=== PATIENT | female | born 1960 | race Caucasian/White ===

== ENCOUNTER 2019-04-20 02:55 | Day surgery (SDC) | payer OTHER, SELFPAY ==
[2019-04-16 13:14] VITALS: BMI 23.5
--- NOTE | 2019-04-20 06:54 | P.HP_ITS ---
History of Present Illness History of Present Illness Consent: Risks, benefits, and alternatives have been discussed and questions answered. Patient agrees to proceed with procedure. Chief complaint: Neoplasm Screening Narrative: Radha Parham is a 59 year old W female Referred for her 1st screening colonoscopy. Patient is asymptomatic. There is a questionable history of colon cancer in a paternal aunt. Patient is on Plavix secondary to coronary artery stents she did stop this 4 days ago. [facility] Past Medical History Medical History (Updated 04/20/19 @ 06:58 by Jose Haskins MD) CAD (coronary artery disease) FH: total abdominal hysterectomy and bilateral salpingo-oophorectomy HTN (hypertension) Hyperlipidemia Surgical History Surgical History (Updated 04/20/19 @ 06:58 by Jose Haskins MD) History of appendectomy History of carpal tunnel release History of tonsillectomy and adenoidectomy Status post coronary artery stent placement Meds Home Medications and Allergies Home Medications Medication Instructions Recorded Confirmed Type acyclovir 400 mg PO DAILY PRN 04/16/19 04/16/19 History alirocumab [Praluent Pen] 150 mg SUBCUT DIRECTED 04/16/19 04/16/19 History alprazolam 0.5 mg PO HS 04/16/19 04/16/19 History aspirin [Aspir-81] 81 mg PO DAILY 04/16/19 04/16/19 History atorvastatin 80 mg PO HS 04/16/19 04/16/19 History clobetasol 1 applic TOPICAL 2XW 04/16/19 04/16/19 History clopidogrel [Plavix] 75 mg PO DAILY 04/16/19 04/16/19 History ketoconazole See Rx Instructions .ROUTE .COMPLEX 04/16/19 04/16/19 History omeprazole 40 mg PO DAILY 04/16/19 04/16/19 History quinapril 10 mg PO DAILY 04/16/19 04/16/19 History Allergies Allergy/AdvReac Type Severity Reaction Status Date / Time No Known Allergies Allergy Verified 04/20/19 06:51 Exam Const: Orientation/consciousness: patient oriented x3 Resp: Auscultation: clear to auscultation bilaterally Cardio: Rate: regular rate Rhythm: regular rhythm Heart sounds: no murmurs GI: GI Palp: Yes Soft to palpation, No Tenderness to palpation present (GI), Yes No hepatosplenomegaly present and No Palpable mass present Auscultation: normal bowel sounds Neuro: General: patient oriented x3 and no focal motor deficits Extrem: General: no pedal edema Assessment and Plan Additional Plan screening colonoscopy
--- NOTE | 2019-04-20 06:56 | WPDANESEPPF ---
Anes - Initial Pre Proc Eval Procedure: Operation Date: 04/20/19 07:30 Proposed Procedures p Screening Colonoscopy - Jose Haskins MD Date/Time: 04/20/19 06:56 Surgeon: Jose Haskins MD Pre Op Diagnosis: Neoplasm Screening Patient Data Age: 59 Gender: F Height: 5 ft 6 in Weight: 66 kg Allergies Allergy/AdvReac Type Severity Reaction Status Date / Time No Known Allergies Allergy Verified 04/20/19 06:51 Home Medications Medication Instructions Recorded Confirmed Type acyclovir 400 mg PO DAILY PRN 04/16/19 04/16/19 History alirocumab [Praluent Pen] 150 mg SUBCUT DIRECTED 04/16/19 04/16/19 History alprazolam 0.5 mg PO HS 04/16/19 04/16/19 History aspirin [Aspir-81] 81 mg PO DAILY 04/16/19 04/16/19 History atorvastatin 80 mg PO HS 04/16/19 04/16/19 History clobetasol 1 applic TOPICAL 2XW 04/16/19 04/16/19 History clopidogrel [Plavix] 75 mg PO DAILY 04/16/19 04/16/19 History ketoconazole See Rx Instructions .ROUTE .COMPLEX 04/16/19 04/16/19 History omeprazole 40 mg PO DAILY 04/16/19 04/16/19 History quinapril 10 mg PO DAILY 04/16/19 04/16/19 History Patient hx anesthesia problems: none Family hx anesthesia problems: none PMFSH Past Medical History Medical History (Updated 04/20/19 @ 06:58 by Jose Haskins MD) CAD (coronary artery disease) FH: total abdominal hysterectomy and bilateral salpingo-oophorectomy HTN (hypertension) Hyperlipidemia Surgical History Surgical History History of appendectomy History of carpal tunnel release History of tonsillectomy and adenoidectomy Status post coronary artery stent placement Anes - Eval Final PreProcedure Day of Procedure 04/20/19 06:56 Patient weight: normal Heart: regular rate and rhythm Lungs: clear to auscultation Airway: Mallampati scale class III and special considerations poor opening Neurological: alert and oriented Last oral intake: >/= 8 hours Emergent: no Anesthetic plan: proceed Anesthesia type and monitoring: general GIVS and standard monitoring Informed Consent: The patient's anesthetic plan and its attendant risks and benefits were discussed with the patient/family/POA. Questions were solicited and answers provided to the satisfaction of the patient/family/POA.
[2019-04-20] MEDS: LACTATED RINGERS 1,000 ML 150 ML IV CONT (07:08)
[2019-04-20 07:11] VITALS: BP 140/86; PULSE 72; RESP 16; TEMP 36.6; O2SAT 99; BMI 22.6
[2019-04-20 07:44] VITALS: BP 87/56; PULSE 71; RESP 20; O2SAT 100
[2019-04-20 07:48] VITALS: BP 101/64; PULSE 65; RESP 20; O2SAT 100
[2019-04-20 07:58] VITALS: BP 103/68; PULSE 63; RESP 23; O2SAT 100
== END 2019-04-20 08:17 | disposition home or self-care (01) ==
PROVIDERS: PCP Internal Medicine; Visit Provider Internal Medicine Gastroenterology
PROC: 0DJD8ZZ Inspection of Lower Intestinal Tract, Via Natural or Artificial Opening Endoscopic (ICD-10-PCS; CPT 45378; principal; 2019-04-20 07:30)
DX: Z12.11 Encounter for screening for malignant neoplasm of colon (principal); K64.4 Residual hemorrhoidal skin tags; I10 Essential (primary) hypertension; I25.10 Atherosclerotic heart disease of native coronary artery without angina pectoris; E78.5 Hyperlipidemia, unspecified; Z79.02 Long term (current) use of antithrombotics/antiplatelets; Z79.82 Long term (current) use of aspirin; Z95.5 Presence of coronary angioplasty implant and graft
CPT/HCPCS: 45378; J7120

== ENCOUNTER → 2019-09-14 12:11 | Outpatient (CLI) | payer OTHER, SELFPAY ==
--- NOTE | ~2019-09-14 | CT_ITS ---
EXAMINATION: CT lung screening DATE: 09/14/2019 12:45 INDICATION: History of tobacco dependence TECHNIQUE: Computed tomography (CT) of the chest was performed without intravenous contrast. The dose -length product was 61.73 mGy-cm. Automated exposure control and iterative reconstruction technique w ere employed. COMPARISON: None FINDINGS: Heart size is normal. There is atherosclerosis. No significant pleural or pericardial effus ion. Nonenlarged mediastinal lymph nodes are likely reactive. The upper abdomen is unremarkable. Ther e are calcified mediastinal lymph nodes and left lower lobe pulmonary nodules, compatible with chroni c granulomatous disease. Mild emphysema. No endobronchial lesions. There is a 2 mm right middle lobe nodule. There is a 4 no acute osseous abnormality. Mm right middle lobe nodule, image 78. IMPRESSION: 1. Lung-RADS category 2: Benign appearance or behavior. Continue annual screening with noncontrast lo w-dose chest CT in 12 months. Reviewed, dictated and finalized at location B. IMPRESSION: 1. Lung-RADS category 2: Benign appearance or behavior. Continue annual screeni ng with noncontrast low-dose chest CT in 12 months.
== END ==
DX: Z12.2 Encounter for screening for malignant neoplasm of respiratory organs (principal); Z87.891 Personal history of nicotine dependence
CPT/HCPCS: G0297

== ENCOUNTER 2019-10-05 10:14 | Outpatient (CLI) | payer OTHER, SELFPAY ==
--- NOTE | ~2019-10-05 | MM_ITS ---
EXAMINATION: MM screening wilian BI w abe HISTORY: Screening TECHNIQUE: Craniocaudal and mediolateral oblique 3-D tomosynthesis images were obtained and synthetic 2-D images were generated. CAD analysis was submitted and interpreted. COMPARISON: 11/24/2009 BREAST PARENCHYMAL COMPOSITION: The breasts are heterogenously dense, which may obscure small masses. FINDINGS: There is no evidence of suspicious mass, calcification, or architectural distortion to sugg est malignancy in either breast. There has been no suspicious interval change. IMPRESSION: 1. No mammographic evidence of malignancy. 2. Recommend routine screening mammography in one year. BI-RADS Category 1: Negative Reviewed, dictated and finalized at location A.
== END 2019-10-05 10:15 | disposition home or self-care (01) ==
LOC: ANHIMG 10:17
PROVIDERS: PCP Internal Medicine; Visit Provider Internal Medicine
DX: Z12.31 Encounter for screening mammogram for malignant neoplasm of breast (principal)
CPT/HCPCS: 77063; 77067

== ENCOUNTER 2019-11-06 01:47 | Outpatient (CLI) | payer OTHER, SELFPAY ==
[2019-11-06 17:02] LABS: SARS-CoV-2 RNA PCR Negative
== END 2019-11-06 01:48 | disposition home or self-care (01) ==
LOC: ANHCOVIDDT 01:48
PROVIDERS: PCP Internal Medicine; Visit Provider Internal Medicine Gastroenterology
DX: Z01.812 Encounter for preprocedural laboratory examination (principal)
CPT/HCPCS: 87635; C9803; U0003

== ENCOUNTER 2019-11-08 00:19 | Day surgery (SDC) | payer OTHER, SELFPAY ==
[2019-10-31 08:58] VITALS: BMI 23.1
--- NOTE | 2019-11-08 09:25 | WPDANESEPPF ---
Anes - Initial Pre Proc Eval Procedure: Operation Date: 11/08/19 09:30 Proposed Procedures p Esophagogastroduodenoscopy - Jose Haskins MD Date/Time: 11/08/19 09:25 Surgeon: Jose Haskins MD Pre Op Diagnosis: Blood in Stool Patient Data Age: 59 Gender: F Height: 1.68 m Weight: 65 kg Allergies Allergy/AdvReac Type Severity Reaction Status Date / Time No Known Allergies Allergy Verified 11/08/19 09:26 Home Medications Medication Instructions Recorded Confirmed Type Praluent Pen 150 mg SUBCUT DIRECTED 04/16/19 10/31/19 History atorvastatin 80 mg PO HS 04/16/19 10/31/19 History clopidogrel [Plavix] 75 mg PO DAILY 04/16/19 10/31/19 History omeprazole 40 mg PO DAILY 04/16/19 10/31/19 History quinapril 10 mg PO DAILY 04/16/19 10/31/19 History Patient hx anesthesia problems: none Family hx anesthesia problems: none PMFSH Past Medical History Medical History (Updated 11/08/19 @ 09:39 by Js Rosales MD) Anxiety Arthritis CAD (coronary artery disease) Depression FH: total abdominal hysterectomy and bilateral salpingo-oophorectomy Gastroesophageal reflux disease HTN (hypertension) Hyperlipidemia FREDI (obstructive sleep apnea) Surgical History Surgical History (Updated 11/08/19 @ 09:39 by Js Rosales MD) History of appendectomy History of carpal tunnel release History of tonsillectomy and adenoidectomy Status post coronary artery stent placement STENTS X4- PLAVIX Social History Social History Alcohol intake: current Substance use type: does not use Living arrangements: with family Anes - Eval Final PreProcedure Day of Procedure 11/08/19 09:25 Patient weight: normal Heart: regular rate and rhythm Lungs: clear to auscultation and normal air movement Airway: Mallampati scale class II Neurological: alert and oriented Last oral intake: >/= 8 hours ASA classification: III Emergent: no Anesthetic plan: proceed Anesthesia type and monitoring: general GIVS Informed Consent: The patient's anesthetic plan and its attendant risks and benefits were discussed with the patient/family/POA. Questions were solicited and answers provided to the satisfaction of the patient/family/POA.
[2019-11-08 09:27] VITALS: BP 149/81; PULSE 69; RESP 16; TEMP 36.8; O2SAT 99
[2019-11-08] MEDS: LACTATED RINGERS 1,000 ML 150 ML IV CONT (09:44)
--- NOTE | 2019-11-08 09:55 | P.HP_ITS ---
History of Present Illness History of Present Illness Consent: Risks, benefits, and alternatives have been discussed and questions answered. Patient agrees to proceed with procedure. Chief complaint: Blood in Stool Narrative: Radha Parham is a 59 year old W female Referred for gastroscopy for evaluation of anemia and recent episode of several days of dark stools. Patient was on 81 mg of aspirin and Plavix this was discontinued dark stool stopped and she was restarted on Plavix and no further black stools she takes Pepto-Bismol cage only does not recall taking it during the dark stools. Patient agreed colonoscopy March this year which was normal was a good prep terminal ileum was normal. She denies any prior to peptic ulcer disease. She does take ibuprofen occasionally she has severe back pain but not on a regular basis. Patient is on 40 mg of Prilosec for acid reflux disease. [facility] Past Medical History Medical History Anxiety Arthritis CAD (coronary artery disease) Depression FH: total abdominal hysterectomy and bilateral salpingo-oophorectomy Gastroesophageal reflux disease HTN (hypertension) Hyperlipidemia FREDI (obstructive sleep apnea) Surgical History Surgical History History of appendectomy History of carpal tunnel release History of tonsillectomy and adenoidectomy Status post coronary artery stent placement STENTS X4- PLAVIX Social History Social History Alcohol intake: current Substance use type: does not use Living arrangements: with family Meds Home Medications and Allergies Home Medications Medication Instructions Recorded Confirmed Type Praluent Pen 150 mg SUBCUT DIRECTED 04/16/19 10/31/19 History atorvastatin 80 mg PO HS 04/16/19 10/31/19 History clopidogrel [Plavix] 75 mg PO DAILY 04/16/19 11/08/19 History omeprazole 40 mg PO DAILY 04/16/19 10/31/19 History quinapril 10 mg PO DAILY 04/16/19 11/08/19 History Allergies Allergy/AdvReac Type Severity Reaction Status Date / Time No Known Allergies Allergy Verified 11/08/19 09:26 Vital Signs Vital Signs - 24 hr 11/08/19 09:27 Temperature 36.8 C Pulse Rate 69 Respiratory Rate 16 Blood Pressure 149/81 H Pulse Oximetry 99 Exam Const: Orientation/consciousness: patient oriented x3 Resp: Auscultation: clear to auscultation bilaterally Cardio: Rate: regular rate Rhythm: regular rhythm Heart sounds: no murmurs GI: GI Palp: Yes Soft to palpation, No Tenderness to palpation present (GI), Yes No hepatosplenomegaly present and No Palpable mass present Auscultation: normal bowel sounds Neuro: General: patient oriented x3 and no focal motor deficits Extrem: General: no pedal edema Assessment and Plan Additional Plan Gastroscopy for evaluation anemia and recent episode of black stools
[2019-11-08 11:52] VITALS: BP 110/61; PULSE 72; RESP 26; O2SAT 99
[2019-11-08 11:56] VITALS: BP 135/69; PULSE 67; RESP 16; O2SAT 100
[2019-11-08 12:04] VITALS: BP 130/72; PULSE 68; RESP 16; O2SAT 100
== END 2019-11-08 12:22 | disposition home or self-care (01) ==
PROVIDERS: PCP Internal Medicine; Visit Provider Internal Medicine Gastroenterology
PROC: 0DJ08ZZ Inspection of Upper Intestinal Tract, Via Natural or Artificial Opening Endoscopic (ICD-10-PCS; CPT 43235; principal; 2019-11-08 09:30)
DX: K29.50 Unspecified chronic gastritis without bleeding (principal); K92.1 Melena; K21.9 Gastro-esophageal reflux disease without esophagitis; I10 Essential (primary) hypertension; I25.10 Atherosclerotic heart disease of native coronary artery without angina pectoris; E78.5 Hyperlipidemia, unspecified; G47.33 Obstructive sleep apnea (adult) (pediatric); F41.8 Other specified anxiety disorders; Z95.5 Presence of coronary angioplasty implant and graft; Z79.02 Long term (current) use of antithrombotics/antiplatelets
CPT/HCPCS: 43239; 87081; 87635; 88305; C9803; J2704; J7120; U0003

== ENCOUNTER 2020-04-29 06:08 | Outpatient (CLI) | payer OTHER, SELFPAY ==
[2020-04-24 09:18] VITALS: BMI 24.2
--- NOTE | 2020-04-29 06:46 | SUR.OPER ---
Patient brought to GI Lab. Instructions for patient undergoing Capsule Endoscopy reviewed with patient. Consent form signed. Sensor array applied to patient's abdomen and connected to recorded. Patient swallowed capsule with 12 ozs of water infused with Simethicone. Patient instructed they may have clear liquids at 0830 this AM and eat or drink at 1030 this AM. Patient instructed to return to GI Lab at 1500 this afternoon for removal of recording device and to call [phone] or to return to the hospital if any nausea and vomiting or abdominal pain is experienced.
--- NOTE | 2020-04-29 14:54 | SUR.OPER ---
Patient returned to the GI Lab at 1445 for recorder box removal. Patient voiced no complaints. States they have understanding of instructions. Patient left ambulatory.
== END 2020-04-29 06:09 | disposition home or self-care (01) ==
LOC: ANHENDO 06:09
PROVIDERS: PCP Internal Medicine; Visit Provider Internal Medicine Gastroenterology
PROC: 0DJ07ZZ Inspection of Upper Intestinal Tract, Via Natural or Artificial Opening (ICD-10-PCS; CPT 91110; principal; 2020-04-29 07:00)
DX: Z01.812 Encounter for preprocedural laboratory examination (principal); K92.1 Melena
CPT/HCPCS: 91110

== ENCOUNTER 2024-07-24 10:29 | Outpatient (CLI) | payer MEDICARE, SELFPAY ==
--- NOTE | ~2024-07-24 | PE_ITS ---
EXAMINATION: PET skull to mid thigh DATE: 07/24/2024 12:33 INDICATION: Solitary pulmonary nodule TECHNIQUE: Blood glucose level was 111 mg/dL. 10.596 mCi of 18-fluorodeoxyglucose (18-FDG) was admini stered i.v. Low dose computed tomography (CT) images were acquired from the base of the brain to the proximal thighs for attenuation correction and anatomic localization. Positron emission tomography (P ET) images were acquired in the same distribution beginning 61 minutes after injection. Images includ ing fused PET/CT images were reconstructed in axial, coronal, and sagittal planes. Automated exposure control technique was employed. The dose-length product was 576.84mGy-cm. COMPARISON: None FINDINGS: Head/neck: There is symmetric increased activity in the oral cavity, palatine tonsils and ocular muscles without CT correlate, likely physiologic. No pathologically enlarged cervical lymphadenopathy or suspicious foci of increased FDG uptake in the visualized head or neck. Chest: Mild emphysema. 5 mm subpleural nodule in the right lower lobe where on the prior study and images wi thout evident increased FDG activity. Calcified left lower lobe nodule and calcified left hilar and m ediastinal lymph nodes consistent with old granulomatous disease. No other suspicious pulmonary nodul es, pneumonia, pulmonary edema or pleural effusion. Heart size is normal. Atherosclerotic coronary ar jesus calcific location. Mildly aneurysmal ascending thoracic aorta measuring up to 4.2 cm in maximal diameter. Mild left axillary and subpectoral lymphadenopathy with asymmetric enlargement of multiple still normal-sized lymph nodes with several measuring up to 9 mm in maximal short axis diameter. Ther e is mild associated increased FDG uptake with maximal SUV values up to 7.2. No pathologically enlarg ed or other PSMA avid thoracic lymphadenopathy. Abdomen/pelvis/proximal thighs: Physiologic renal accumulation and excretion of activity in the kidneys, bladder and along portions o f ureters. 2.5 cm right renal parapelvic cyst. Normal degree and slightly heterogenous pattern of inc reased uptake throughout the liver and spleen without radiologic correlate or dominant PSMA avid lesi on. There are few small splenic calcific location consistent with old granulomatous disease. The gall bladder, pancreas and bilateral adrenal glands are normal. Moderate uptake scattered throughout the b owels with typical duodenal and proximal jejunal predominance and without radiologic correlate, also likely physiologic. The uterus is not identified and has likely been surgically resected. No other ab normal foci of increased uptake or pathologically enlarged lymphadenopathy in the abdomen, pelvis or proximal thighs. Musculoskeletal: Moderate lower cervical and lumbosacral spondylosis with mild intervening thoracic and lumbar spondyl osis. No suspicious lytic, blastic or abnormally FDG avid bone lesions. IMPRESSION: 1. Minimal increase in size of a previously 4 mm, currently 5 mm subpleural nodule in the right lower lobe which is without evident FDG uptake. The slight change may be due to differences in technique b ut would recommend 6 month follow-up low-dose noncontrast chest CT. No other suspicious pulmonary nod ules identified. 2. Multiple asymmetrically enlarged and mildly FDG avid left axillary and subpectoral 0lymph nodes wh ich remain within normal limits in size and are most likely reactive. These could be followed up at t he same time as the pulmonary nodule. Reviewed, dictated and finalized at location A. IMPRESSION: 1. Minimal increase in size of a previously 4 mm, currently 5 mm subpleural nod ule in the right lower lobe which is without evident FDG uptake. The slight db nge may be due to differences in technique but would recommend 6 month follow-u p low-dose noncontrast chest CT. No other suspicious pulmonary nodules identifi ed. 2. Multiple asymmetrically enlarged and mildly FDG avid left axillary and subpe ctoral 0lymph nodes which remain within normal limits in size and are most like ly reactive. These could be followed up at the same time as the pulmonary nodul e.
--- OUTSIDE RECORDS SUMMARY | 2024-07-24 10:35 | XMS_ITS | Clinical Summary ---
Author Organization [facility] Address [address] [place] [address] Care Team Providers Care Travel Counselor [employer] Name Role Phone Avinash Lomas MD Unavailable [phone] Neal Crain DPM Unavailable [phone] Source Comments [facility],non-owned Affiliates and Associated Physician Practices is amultiple site organization consisting of ambulatory clinics and hospital sitesin [place], [place], [place] and [place]. This disclosure is being madepursuant to the Care Everywhere program and may not contain all information available regarding this patient. Last updated 17.[facility] Allergies No known active allergies Medications * Be aware that medications may not be up to date on this document. Alwaysverify current medications with the patient. piroxicam (FELDENE) 20 MG capsule 1 Cap once daily. 90 Cap 1 2 Active Additional Information Patient not taking.Reported on 12/21/2017 pantoprazole (PROTONIX) 40 MG packet once daily. Active atorvastatin (LIPITOR) 10 MG tablet once daily. Active aspirin 81 MG tablet every other day as needed. Active ibuprofen (MOTRIN) 800 MG tablet 3 times daily. 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 Gender Identity Female 12/21/2017 9:59 AM CDT Sexual Orientation Not on file Occupation Industry Job Start Date Job End Date [employer] Not on file Not on file Not on file Last Filed Vital Signs Vital Sign Reading Time Taken Comments Blood Pressure 108/72 12/22/2017 11:36 AM CDT Pulse 57 12/22/2017 11:36 AM CDT Temperature 36.8 C (98.2 F) 12/22/2017 11:36 AM CDT Respiratory Rate 18 12/22/2017 11:36 AM CDT Oxygen Saturation 96% 12/22/2017 11:36 AM CDT Inhaled Oxygen Concentration - - Weight 60.1 kg (132 lb 9.6 oz) 12/21/2017 10:09 AM CDT Height 167.6 cm (5' 6 ) 12/21/2017 10:09 AM CDT Body Mass Index 21.4 12/21/2017 10:09 AM CDT Plan of Treatment Health Maintenance Due Date Last Done Comments BONE DENSITY TESTING 1959 COLOGUARD (AGES 45-75) - COL ON CA SCREENING 1959 COLON MONITORING 1959 COLONOSCOPY - COLON CA SCREENING 1959 CT COLONOGRAPHY - COLON CA SCREENING 1959 Colorectal Cancer Screening 1959 FIT - COLON CA SCREENING 1959 FLEX SIG - COLON CA SCREENING 1959 MAMMOGRAM 1959 HIV SCREENING 1974 HEPATITIS C SCREENING 01/03/1977 DTAP/TDAP/TD VACCINES (1 - Tdap) 1978 PNEUMOCOCCAL VACCINE 50+ (1 of 1 - PCV) 2009 ZOSTER VACCINE (1 of 2) 2009 COVID-19 VACCINE ( - 2023-2 5 season) 2023 DEPRESSION SCREENING 02/29/2024 INFLUENZA VACCINE (Season Ended) 2024 Respiratory Syncytial Virus (RSV) Vaccine Pt: or over 60 yrs (1 - 1-dose 75+ series) 2034 HEPATITIS B VACCINE Aged Out No longe r eligible based on patient's age to complete this topic HIB VACCINE Aged Out No longer eligi ble based on patient's age to complete this topic HPV VACCINE Aged Out No longer eligi ble based on patient's age to complete this topic MENINGOCOCCAL (Group B) VACC INE SHARED DECISION-MAKING Aged Out No longer eligibl e based on patient's age to complete this topic MENINGOCOCCAL GROUPS A/C/Y/W VACCINE Aged Out No longer eligible b ased on patient's age to complete this topic Insurance BCBS/BL[place] BLUE [place] AET[place] AETNA Advance Directives * Full Code (Latest Code Status on File) Date Activated Date Inactivated Comments 12/21/2017 3:36 PM 12/22/2017 3:27 PM Care Teams Travel Counselor [employer] Relationship Specialty Start Date End Date Avinash Lomas MD [address] [place] [address] Referring Physician Internal Medicine 01/12/12 Neal Crain DPM [address] [place] [address] Podiatry 01/12/12
--- OUTSIDE RECORDS SUMMARY | 2024-07-24 10:36 | XMS_ITS | CONTINUITY OF CARE DOCUMENT ---
Author Name vlad marleyshani Address Unknown Organization [facility] Address [address] [place] [address] Phone [phone] Care Team Providers Care Dental Associate Name Role Phone Murali Miller MD Unavailable [phone] Leroy Agarwal MD Unavailable Leroy Agarwal MD Unavailable [phone] PROBLEMS Condition Status Date Provider Notes Cardiovascular screening completed - Murali Miller MD Family History CAD (female < 60 yo) active ? Murali Miller MD CHEST PAIN active Murali Miller MD Hypertension active Murali Miller MD Dyslipidemia active Murali Miller MD Tobacco use quit active Murali Miller MD Rheumatic fever active Murali Miller MD Shortness of breath completed - Murali Miller MD Leg pain, bilateral completed - Murali Miller MD CAD active Murali Miller MD Dizziness completed - Murali Miller MD Angina pectoris active Murali Miller MD GI bleed active Valencia Cheney Leg cramps active Murali Miller MD ENCOUNTERS Date Type Provider Location Encounter Diag nosis 3 - 3 In-person encounter Office Visit [facility] Leg cramps 9 - 9 In-person encounter Office Visit Murali Miller MD [facility] 9 - 9 In-person encounter Office Visit Murali Miller MD [facility] 0 - 0 In-person encounter Office Visit Murali Miller MD [facility] 9 - 9 In-person encounter Office Visit Milan Juarez MD [facility] 6 - 7 In-person encounter Office Visit Murali Miller MD [facility] 8 - 8 In-person encounter Office Visit Murali Miller MD [facility] 7 - 4 In-person encounter Office Visit Murali Miller MD [facility] 1 - 1 In-person encounter Office Visit Murali Miller MD [facility] 5 - 5 In-person encounter Office Visit Murali Miller MD [facility] GI bleed 3 - 1 In-person encounter Office Visit Murali Miller MD [facility] 6 - 3 In-person encounter Office Visit Juan Jose Shay MD [facility] 6 - 2 In-person encounter Office Visit Murali Miller MD [facility] Shortness of breathLeg pain, bilateralDizziness 7 - 7 In-person encounter Office Visit Murali Miller MD [facility] Angina pectoris 7 - 7 In-person encounter Office Visit Murali Miller MD [facility] 0 - 0 In-person encounter Office Visit Murali Miller MD [facility] Tobacco use quit 7 - 8 In-person encounter Office Visit Murali Miller MD [facility] Tobacco use quit 9 - 5 In-person encounter Office Visit Murali Miller MD [facility] 8 - 2 In-person encounter Office Visit Murali Miller MD [facility] 8 - 1 In-person encounter Office Visit Murali Miller MD [facility] Cardiovascular screeningFamily History CAD (female < 60 yo)CHEST PAINHypertensionDyslipidemiaTobacco use quitRheumatic feverCAD VITAL SIGNS Date Observation Value Provider Body Mass Index (Ratio) 24.21 kg/m2 Rg Neal blood pressure, cuff size regular Br micah Fan blood pressure, diastolic 97 mm[Hg] Mari micah Fan blood pressure, systolic 158 mm[Hg] Martinejudy Fan weight E&M 150 [lb_av] Tiffani Morin s height E&M 66 [in_i] Tiffanikrys Morin s Body Mass Index (Ratio) 24.21 kg/m2 Rg rivas [place] blood pressure, diastolic 90 mm[Hg] Li nkLogic blood pressure, systolic 146 mm[Hg] Marivel kLog weight E&M 150 [lb_av] [facility] blood pressure, diastolic 90 mm[Hg] Vi pin [facility] blood pressure, systolic 146 mm[Hg] Vip in [facility] pulse rate 84 /min [facility] respiratory rate E&M 20 /min [facility], oximetry 98 % [facility] height E&M 66 [in_i] [facility] Body Mass Index (Ratio) 24.21 kg/m2 Aki Gong blood pressure, cuff size regular Fa [facility] blood pressure, diastolic 83 mm[Hg] Fa [facility] blood pressure, systolic 123 mm[Hg] Madhav Vivas pulse rate 84 /min Uzma Vivas oxygen saturation, oximetry 96 % Uzma [place] respiratory rate E&M 14 /min Uzma coburn weight E&M 150 [lb_av] Uzma Vivas height E&M 66 [in_i] [facility] Body Mass Index (Ratio) 24.53 kg/m2 Aki Gong blood pressure, cuff size regular Ja rret blood pressure, diastolic 86 mm[Hg] Ja rret blood pressure, systolic 142 mm[Hg] Jar ret pulse rate 79 /min Andry oxygen saturation, oximetry 99 % Andry respiratory rate E&M 12 /min Andry weight E&M 152 [lb_av] Andry height E&M 66 [in_i] Andry Body Mass Index (Ratio) 24.05 kg/m2 Wilfrido Juarez MD blood pressure, cuff size regular rret blood pressure, diastolic 68 mm[Hg] Ja rret blood pressure, systolic 123 mm[Hg] Jar ret pulse rate 91 /min Andry oxygen saturation, oximetry 95 % Andry respiratory rate E&M 12 /min Andry weight E&M 149 [lb_av] Andry height E&M 66 [in_i] Andry er y Body Mass Index (Ratio) 25.01 kg/m2 Azucena Cheney blood pressure, diastolic 80 mm[Hg] St juvencio Delgado blood pressure, systolic 131 mm[Hg] Jose Raul joyner Danny oxygen saturation, oximetry 97 % Radha Danny pulse rate 78 /min Radha Danny respiratory rate E&M 16 /min Radha Francisco Javier bolaños weight E&M 155 [lb_av] Radha Danny height E&M 66 [in_i] Radha Danny Body Mass Index (Ratio) 25.01 kg/m2 Azucena basschintan Cheney blood pressure, diastolic 85 mm[Hg] Sa ra Liang blood pressure, systolic 136 mm[Hg] Zofia a Liang respiratory rate E&M 19 /min Melissa Si ms oxygen saturation, oximetry 96 % Melissa Liang pulse rate 82 /min Melissa Liang blood pressure, cuff size regular Sa ra Liang weight E&M 155 [lb_av] Melissa Liang height E&M 66 [in_i] Melissa Liang Body Mass Index (Ratio) 25.01 kg/m2 Azucena bozena Cheney blood pressure, cuff size large Mi mey [place] blood pressure, diastolic 90 mm[Hg] Mi mey [place] blood pressure, systolic 140 mm[Hg] [facility] [place] oxygen saturation, oximetry 97 % Melissa Bhat respiratory rate E&M 18 /min Angely Bhat pulse rate 94 /min Melissa rivas weight E&M 155 [lb_av] Melissa rivas height E&M 66 [in_i] Melissa rivas Body Mass Index (Ratio) 24.53 kg/m2 Azucena Cheney blood pressure, cuff size large Lefty Rudolph blood pressure, diastolic 88 mm[Hg] Lefty Gonzalezuenenfelder blood pressure, systolic 162 mm[Hg] Lena Romoelder oxygen saturation, oximetry 98 % Nicole Romoelder respiratory rate E&M 14 /min Nicole gonzalesnfelder pulse rate 80 /min Nicole Lombardo er weight E&M 152 [lb_av] Nicole Torresnenfe lder height E&M 66 [in_i] Nicole Gryasmanie lder Body Mass Index (Ratio) 24.21 kg/m2 Azucena Stephensmeheriberto blood pressure, diastolic 97 mm[Hg] Li nkLogic blood pressure, systolic 177 mm[Hg] Marivel kLogic blood pressure, diastolic 97 mm[Hg] Ca therine Adrian blood pressure, systolic 177 mm[Hg] Cat herine Adrian oxygen saturation, oximetry 97 % Awilda Adrian respiratory rate E&M 16 /min Catheri ne Adrian pulse rate 83 /min Awilda Adrian weight E&M 150 [lb_av] Awilda [place] blood pressure, cuff size regular Ca therine [place] height E&M 66 [in_i] Awilda Adrian blood pressure, diastolic 100 mm[Hg] Angle Serna Ca blood pressure, systolic 160 mm[Hg] Karuna Ca oxygen saturation, oximetry 96 % Tk Ca respiratory rate E&M 16 /min Tatiana Ca pulse rate 76 /min Tk gonzalez height E&M 66 [in_i] Tk gonzalez Body Mass Index (Ratio) 23.72 kg/m2 Chris Shay MD blood pressure, cuff size regular Cy gerson Potter blood pressure, diastolic 76 mm[Hg] Cy gerson Potter blood pressure, systolic 122 mm[Hg] [facility] elan Potter respiratory rate E&M 16 /min Amanda Potter pulse rate 71 /min Amanda lee oxygen saturation, oximetry 99 % Amanda Potter weight E&M 147 [lb_av] Amanda Rizvi l height E&M 66 [in_i] Amanda lee Body Mass Index (Ratio) 30.50 kg/m2 Cm Hyman respiratory rate E&M 16 /min [facility] pulse rate 78 /min [facility] blood pressure, diastolic 62 mm[Hg] To [facility] blood pressure, systolic 110 mm[Hg] [facility] oxygen saturation, oximetry 96 % [facility] weight E&M 189 [lb_av] [facility] height E&M 66 [in_i] [facility] Body Mass Index (Ratio) 22.69 kg/m2 Cm Hyman blood pressure, diastolic 83 mm[Hg] Angle Ca blood pressure, systolic 150 mm[Hg] Karuna Ca oxygen saturation, oximetry 98 % Tk Ca respiratory rate E&M 18 /min Tatiana Ca pulse rate 85 /min Tk Bienvenido carlos weight E&M 140.6 [lb_av] Tk sheetson height E&M 66 [in_i] Tk Faria nson Body Mass Index (Ratio) 21.79 kg/m2 Cm Hyman blood pressure, diastolic 84 mm[Hg] Da christal [place] blood pressure, systolic 142 mm[Hg] Dac ia Pancho oxygen saturation, oximetry 98 % Ceci Pancho respiratory rate E&M 16 /min Ceci V oss pulse rate 72 /min Ceci Pancho weight E&M 135 [lb_av] Ceci Pancho height E&M 66 [in_i] Ceci Pancho Body Mass Index (Ratio) 21.95 kg/m2 Cm Hyman blood pressure, diastolic 80 mm[Hg] Bonnie rosa Raheem Miller MD blood pressure, systolic 138 mm[Hg] Murail Woo Paul COLEMAN oxygen saturation, oximetry 95 % Murali Raheem Paul COLEMAN respiratory rate E&M 16 /min Murali Woo Delio batista MD pulse rate 63 /min Murali Woo Paul COLEMAN weight E&M 136 [lb_av] Murali Woo Paul COLEMAN height E&M 66 [in_i] Ceci [place] Body Mass Index (Ratio) 21.63 kg/m2 Cm Hyman blood pressure, diastolic 78 mm[Hg] [facility] blood pressure, systolic 126 mm[Hg] [facility], oximetry 98 % [facility] respiratory rate E&M 16 /min [facility] pulse rate 95 /min [facility] weight E&M 134 [lb_av] [facility] height E&M 66 [in_i] [facility] Body Mass Index (Ratio) 21.14 kg/m2 Cm Hyman blood pressure, cuff size regular Kr isniraj [place] blood pressure, diastolic 80 mm[Hg] Eric isty Marilou blood pressure, systolic 110 mm[Hg] Leigh Fletcherby respiratory rate E&M 17 /min Lilo [place] oxygen saturation, oximetry 99 % Lilo [place] pulse rate 66 /min Lilo Zamarripa weight E&M 131 [lb_av] Lilo Zamarripa height E&M 66 [in_i] Lilo Zamarripa Body Mass Index (Ratio) 19.21 kg/m2 Cm Hyman blood pressure, diastolic 91 mm[Hg] Angle Ca blood pressure, systolic 166 mm[Hg] Karuna Ca oxygen saturation, oximetry 98 % Tk Ca respiratory rate E&M 18 /min Tatiana Ca pulse rate 72 /min Tk gonzalez weight E&M 119 [lb_av] Tk Faria farideh height E&M 66 [in_i] Tk Faria farideh Body Mass Index (Ratio) 18.08 kg/m2 Cm thayer [facility] blood pressure, resting Yes [facility] blood pressure, diastolic, left arm 60 mm [Hg] [facility], systolic, left arm 110 mm [Hg] [facility] blood pressure, diastolic, right arm 60 m m[Hg] [facility] blood pressure, systolic, right arm 110 m m[Hg] [facility] blood pressure, diastolic 60 mm[Hg] [facility] blood pressure, systolic 110 mm[Hg] Yaa presley [place] oxygen saturation, oximetry 99 % [facility] respiratory rate E&M 16 /min [facility] pulse rate 62 /min [facility] weight E&M 112 [lb_av] [facility] height E&M 66 [in_i] [facility] ALLERGIES Allergy Name Onset Date Reaction Criticality Status RANEXA GI UPSET Low Criticality active RESULTS Date Observation Value Provider Reference Range Interpretation Location LDL cholesterol, serum 27 mg/dL Murali Miller MD alanine aminotransferase (SGPT), serum 21 1/L [facility] 0-32 aspartate aminotransferase (SGOT), serum 22 1/L [facility] 0-40 alkaline phosphatase, serum 105 1/L [facility] 39-117 bilirubin, serum, direct 0.11 mg/dL [facility] 0.00-0.40 bilirubin, serum, total 0.3 mg/dL [facility] 0.0-1.2 albumin, serum 4.2 g/dL [facility] 3.5-5.5 protein, total, serum 6.7 g/dL [facility] 6.0-8.5 lipoprotein, beta, serum, point, quantitative, calculated 27 mg/dL [facility] 0-99 very low density lipoproteins 11 mg/dL [facility] 5-40 HDL cholesterol, serum 64 mg/dL [facility] >39 triglyceride, serum, random 56 mg/dL [facility] 0-149 cholesterol, serum 102 mg/dL [facility] [phone]/06/ 11 alanine aminotransferase (SGPT), serum 25 1/L [facility] 0-32 aspartate aminotransferase (SGOT), serum 26 1/L [facility] 0-40 alkaline phosphatase, serum 113 1/L [facility] 39-117 bilirubin, serum, direct 0.09 mg/dL [facility] 0.00-0.40 bilirubin, serum, total 0.3 mg/dL [facility] 0.0-1.2 albumin, serum 4.8 g/dL [facility] 3.5-5.5 protein, total, serum 7.7 g/dL [facility] 6.0-8.5 lipoprotein, beta, serum, point, quantitative, calculated 120 mg/dL [facility] 0-99 High very low density lipoproteins 22 mg/dL [facility] 5-40 HDL cholesterol, serum 64 mg/dL [facility] >39 triglyceride, serum, random 108 mg/dL [facility] 0-149 cholesterol, serum 206 mg/dL [facility] 100-199 High alanine aminotransferase (SGPT), serum 22 1/L [facility] 0-32 aspartate aminotransferase (SGOT), serum 26 1/L [facility] 0-40 alkaline phosphatase, serum 102 1/L [facility] 39-117 bilirubin, serum, direct 0.09 mg/dL [facility] 0.00-0.40 bilirubin, serum, total 0.3 mg/dL [facility] 0.0-1.2 albumin, serum 4.5 g/dL [facility] 3.5-5.5 protein, total, serum 7.0 g/dL [facility] 6.0-8.5 lipoprotein, beta, serum, point, quantitative, calculated 110 mg/dL [facility] 0-99 High very low density lipoproteins 15 mg/dL [facility] 5-40 HDL cholesterol, serum 72 mg/dL [facility] >39 triglyceride, serum, random 76 mg/dL [facility] 0-149 cholesterol, serum 197 mg/dL [facility] [phone]/09/ 18 LDL cholesterol, serum 91 mg/dL Murali Miller MD lipoprotein, beta, serum, point, quantitative, calculated 91 mg/dL [facility] 0-99 very low density lipoproteins 25 mg/dL [facility] 5-40 HDL cholesterol, serum 59 mg/dL [facility] >39 triglyceride, serum, random 123 mg/dL [facility] 0-149 cholesterol, serum 175 mg/dL [facility] [phone]/09/ 18 calcium, serum 9.4 mg/dL [facility] 8.7-10.2 carbon dioxide, venous blood 18 mmol/L [facility] 20-29 Low chloride, serum 105 mmol/L [facility] 96-106 potassium, serum 4.4 mmol/L [facility] 3.5-5.2 sodium, serum 143 mmol/L [facility] [phone]/09/ 18 urea nitrogen/creatinine ratio, serum 27 [facility] 9-23 High eGFR if 112 mL/min/{1 .73_m2} [facility] >59 eGFR if not 97 mL/min/{1 .73_m2} [facility] >59 creatinine, serum 0.67 mg/dL [facility] 0.57-1.00 urea nitrogen, blood 18 mg/dL [facility] 6-24 blood glucose, random 95 mg/dL [facility] 65-99 prothrombin time (patient) 10.5 s [facility] 9.1-12.0 international normalized ratio (INR) 1.0 [facility] 0.8-1.2 basophil count, absolute 0.0 x10E3/uL [facility] 0.0-0.2 Eosinophil Absolute Count 0.1 X10E3/UL [facility] 0.0-0.4 monocyte count, blood, automated 0.6 X10E3/UL [facility] 0.1-0.9 lymphocyte count, blood, automated 2.1 X10E3/UL [facility] 0.7-3.1 Absolute Neutrophils 4.5 X10E3/UL [facility] 1.4-7.0 basophils as percent of blood leukocytes 0 % [facility] Not Estab. eosinophils as percent of blood leukocytes 1 % [facility] Not Estab. monocytes as percent of blood leukocytes 8 % [facility] Not Estab. lymphocytes as percent of blood leukocytes 29 % [facility] Not Estab. neutrophils as percent of blood leukocytes 62 % [facility] Not Estab. platelet count 303 X10E3/UL [facility] [phone]/09/ 18 red blood cell distribution width 12.8 % [facility] 12.3-15.4 mean corpuscular hemoglobin concentration, RBC 33.4 G/DL [facility] 31.5-35.7 mean corpuscular hemoglobin, RBC 30.0 pg [facility] 26.6-33.0 mean corpuscular volume, RBC 90 fL [facility] 79-97 hematocrit, blood 36.2 % [facility] 34.0-46.6 hemoglobin, blood 12.1 g/dL [facility] 11.1-15.9 erythrocyte (RBC) count 4.03 X10E6/UL [facility] 3.77-5.28 leukocyte count, blood 7.3 X10E3/UL [facility] 3.4-10.8 LDL cholesterol, serum 138 mg/dL [facility] hemoglobin A1C, blood, as % of total hemoglobin 5.7 % [facility] 4.0-5.6 High iron binding capacity, total 353 ug/dL [facility] [phone]/09/ 14 iron, serum 118 ug/dL [facility] 25-156 vitamin b12, serum 525 pg/mL [facility] [phone]/09/ 14 triiodothyronine uptake 1.1 TBI [facility] 0.8-1.3 thyroxine, serum, total 6.1 ???G/DL [facility] 4.5-11.7 pro brain natriuretic peptide 275 pg/mL [facility] 0-450 very low density lipoproteins 14.4 mg/dL [facility] 5.0-40.0 HDL cholesterol, serum 70 mg/dL [facility] 45-65 High cholesterol, serum 222 mg/dL [facility] 0-200 High triglyceride, serum, fasting 72 mg/dL [facility] 0-150 folate, serum 20.0 NG/MLM [facility] 4.4-31.0 ferritin, serum 133 ng/mL [facility] 13-150 Estimated Glomerular Filtration Rate (calc) 114 (?) LinkLogic >59 chloride, serum 104 mmol/L [facility] 98-107 potassium, serum 5.2 mmol/L [facility] 3.5-5.1 High sodium, serum 143 mmol/L [facility] 320-230 2779/09/ 14 creatinine, serum 0.6 mg/dL [facility] 0.5-0.9 carbon dioxide, venous blood 28 mmol/L [facility] 22-29 calcium, serum 10.1 mg/dL [facility] 8.6-10.2 urea nitrogen, blood 17 mg/dL [facility] 6-20 blood glucose, random 105 mg/dL [facility] 74-99 High platelet count 292 THOUSAND/ UL [facility] [phone]/09/ 14 Absolute Basophils 0.0 CELLS/UL [facility] 0.0-0.2 Absolute Monocytes 0.5 CELLS/UL [facility] 0.2-1.0 Absolute Lymphocytes 2.19 CELLS/UL [facility] 0.85-3.90 Absolute Neutrophils 4.6 CELLS/UL [facility] 1.5-7.8 mean corpuscular volume, RBC 95 fL [facility] 75-100 mean corpuscular hemoglobin concentration, RBC 32 G/DL [facility] 31-38 mean corpuscular hemoglobin, RBC 31 pg [facility] 25-35 hematocrit, blood 37 % [facility] 35-55 hemoglobin, blood 11.8 g/dL [facility] 11.5-16.5 erythrocyte count, whole blood 3.9 MILLION/U L [facility] 3.5-5.5 reticulocyte count, blood, uncorrected 1.3 % [facility] 0.5-2.0 HISTORY OF MEDICATION USE Medication Status Instructions Dates Provider Indications Com ments lisinopril 20 mg tablet active TAKE 1 TABLET BY MOUTH EVERY DAY Nicole GarciaClkarl 140 mg/mL pen injector active ADMINISTER 1 ML UNDER THE SKIN 1 TIME EVERY 2 WEEKS Nicole Rudolph atorvastatin 80 mg tablet completed TAKE 1 TABLET BY MOUTH EVERY EVENING - Murali Miller MD clopidogrel 75 mg tablet active TAKE 1 TABLET BY MOUTH DAILY Marcelinanew Mcneal Cristobal SureClick 140 mg/mL pen injector completed Inject 1 ml subcutaneously once every two weeks - Andry CAD omeprazole 40 mg capsule,delayed release(DR/EC) active TAKE 1 CAPSULE BY MOUTH DAILY Alee Rusdonya nitroglycerin 0.4 mg tablet, sublingual active DISSOLVE 1 TABLET UNDER THE TONGUE EVERY 5 MINUTES NEEDED FOR CHEST PAIN(DO NOT EXCEED A TOTAL OF 3 DOSES IN 15 MINUTES) Sintia Alex Praluent Pen 150 mg/mL pen injector completed INJECT 1 ML UNDER THE SKIN EVERY 2 WEEKS - Sintia Mccabeenz Praluent Pen 150 mg/mL pen injector completed Inject 1 pen injector subcutaneously once every two weeks - Alee Schmitt CAD atorvastatin 80 mg tablet completed Take 1 tablet by mouth every evening - Andry [facility] clopidogrel 75 mg tablet completed Take 1 tablet by mouth once a day - Nicole Rudolph lisinopril 20 mg tablet completed Take 1 tablet by mouth once a day - Nicole Rudolph Plavix 75 mg tablet completed TAKE 1 TABLET DAILY - Sangeetha Schafer atorvastatin 80 mg tablet completed TAKE 1 TABLET DAILY - Sintia Mccabeenz Ranexa 500 mg tablet extended release 12 hr completed Take 1 tablet as needed - Lani Morris [employer] Praluent Pen 150 mg/mL pen injector completed INJECT 1 ML UNDER THE SKIN EVERY 2 WEEKS - Sintia Alex RANEXA 500 MG ORAL TABLET EXTENDED RELEASE 12 HOUR completed ONE TAB. TWICE DAILY for chronic angina - Tk Ca Plavix 75 mg tablet completed 1 tablet once a day - Murali Miller MD quinapril 20 mg tablet completed 1 tablet twice a day - Murali Miller MD LOSARTAN POTASSIUM-HCTZ 100-12.5 MG ORAL TABLET completed 1/2 tab ffor b/p 130 in am - Juan Jose Shay MD Praluent Pen 150 mg/mL pen injector completed inject subcutaneously every 2 weeks - Valencia Cheney ZETIA 10 MG ORAL TABLET completed ONE TAB. DAILY - Irvin White RN ACCUPRIL 10 MG ORAL TABLET completed ONE TAB DAILY - Irvin White RN ISOSORBIDE MONONITRATE ER 30 MG ORAL TABLET EXTENDED RELEASE 24 HOUR completed Take one tablet daily - Irvin White RN RANEXA 1000 MG ORAL TABLET EXTENDED RELEASE 12 HOUR completed ONE TAB. TWICE DAILY for chronic angina - Juan Jose Shay MD PLAVIX 75 MG ORAL TABLET completed take once daily - Murali Miller MD RANEXA 500 MG ORAL TABLET EXTENDED RELEASE 12 HOUR completed Take two tablets twice a day - Ceci Pancho METOPROLOL TARTRATE 25 MG ORAL TABLET completed Take one tab daily - Ceci Pancho Nitrostat 0.4 mg tablet, sublingual completed DISSOLVE 1 TABLET UNDER THE TONGUE EVERY 5 MINUTES NEEDED FOR CHEST PAIN. DO NOT EXCEED A TOTAL OF 3 DOSES IN 15 MINUTES. - Murali Miller MD ASPIR-81 81 MG ORAL TABLET DELAYED RELEASE completed 1 tab daily - Tk Ca ALPRAZOLAM 0.25 MG ORAL TABLET completed 2 tabs daily - Amanda Potter omeprazole 40 mg capsule,delayed release(/EC) completed TAKE 1 CAPSULE BY MOUTH DAILY - Murali Miller MD ACCUPRIL 10 MG ORAL TABLET completed 1 tab daily - Carmen Cho atorvastatin 80 mg tablet completed Take 1 tablet once a day - Murali Miller MD SOCIAL HISTORY Date Observation Value Provider drug use no Murali Miller MD alcohol use no Murali Miller MD smoking, year quit 2017 Murali alvarez MD number of years as a smoker 43 a Murali Miller MD smoking, date started 1973 Murali Miller MD smoking history, tot al pack/year 33 Murali Miller MD smoking history, tot al pack/day 3/4 Murali Miller MD cigarette use yes Murali Miller MD smoking status Former smoker Murali Miller MD drug use no Neal hutchinson alcohol use no Neal hutchinson smoking, year quit 2017 Neal garcia number of years as a smoker 44 a Neal Neal smoking, date started 1973 Neal Neal smoking history, tot al pack/year 33 Neal Neal smoking history, tot al pack/day 3/4 Neal Neal cigarette use yes Neal Sher ch smoking status Former smoker Neal price drug use no Uzma Vivas alcohol use no Uzma Vivas smoking, year quit 2017 [facility] number of years as a smoker 43 a Uzma Vivas smoking, date started 1973 Uzma Vivas smoking history, tot al pack/year 33 Uzma Vivas smoking history, tot al pack/day 3/4 [facility] cigarette use yes [facility] smoking status Former smoker Uzma Vivas drug use no Lani Jackson genaro [facility] alcohol use no Lani Hughesg genaro [facility] smoking status Former smoker Lani back [facility] social history reviewed E&M revi ewed - no changes required El Chavez social history E&M S moking History: Chantel evans is a former smoker. Lani Morris [facility] smoking, year quit 2017 Radha Galaviz is number of years as a smoker 43 a Radha Danny smoking, date started 1973 Radha Danny smoking history, tot al pack/year 33 Radha Danny smoking history, tot al pack/day 3/4 Radha Danny cigarette use yes Radha Danny smoking status Former smoker Radha Danny social history reviewed E&M revi ewed - no changes required Valencia Cheney social history reviewed E&M revi ewed - no changes required Murali Miller MD social history E&M S moking History: Chantel evans is a former smoker. Murali Miller MD social history reviewed E&M revi ewed - no changes required Murali Miller MD smoking, year quit 2017 Melissa Bhat number of years as a smoker 43 a Melissa Home smoking, date started 1974 Jean Marie Glover smoking history, tot al pack/year 33 Melissa Bhat smoking history, tot al pack/day 3/4 Melissa Bhat cigarette use yes Melissa Torres nd smoking status Former smoker Melissa Alejandrina singh social history E&M S moking History: Chantel evans is a former smoker. Kristin Lagunas NP social history reviewed E&M revi ewed - no changes required Kristin Lagunas NP smoking, year quit 2017 Nicole montalvoer number of years as a smoker 43 a Nicole Rudolph smoking, date started 1973 Nicole Rudolph smoking history, tot al pack/year 33 Nicole Blairer smoking history, tot al pack/day 3/4 Nicole Blairer cigarette use yes Nicole santana smoking status Former smoker Nicole wiseer social history E&M S moking History: P cristina is a former smoker. Murali Miller MD social history reviewed E&M revi ewed - no changes required Murali Miller MD smoking, year quit 2017 Awilda Adrian number of years as a smoker 43 a Awilda Broomall smoking, date started 1973 Cather ine Adrian smoking history, tot al pack/year 33 Awilda Adrian smoking history, tot al pack/day 3/4 Awilda Broomall cigarette use yes Awilda Broomall smoking status Former smoker Awilda Ot is smoking status Former smoker [facility] sweet social history reviewed E&M revi ewed - no changes required [facility] social history E&M Smoking Histo ry: P cristina is a former smoker. Chai Boogie smoking, year quit 2017 [facility] number of years as a smoker 43 a Chai Boogie smoking, date started 1973 Chacha nguyen [facility] smoking history, tot al pack/year 33 Chai [facility] smoking history, tot al pack/day 3/4 Chai [facility] cigarette use yes [facility] social history E&M Benefits of s moking cessation have been reviewed. Smoking History: Chantel evans is a former smoker. Juan Jose Shay MD social history reviewed E&M revi ewed - no changes required Juan Jose Shay MD smoking, year quit 2018 Amanda mccain number of years as a smoker 44 a Amanda Potter smoking, date started 1973 Galilea Potetr smoking history, tot al pack/year 33 Amanda Potter smoking history, tot al pack/day 3/4 Amanda Potter cigarette use yes Amanda Hartley doug smoking status Former smoker Amanda klein social history reviewed E&M revi ewed - no changes required Murali Miller MD smoking status Former smoker Tonsha Higginbotham smoking, year quit 2017 Tonsha Mo ss number of years as a smoker 43 a Tonsha Higginbotham smoking, date started 1973 Tonsha Higginbotham smoking history, tot al pack/year 33 Murali Miller MD smoking history, tot al pack/day 3/4 Tonsha Higginbotham cigarette use yes Tonsha Higginbotham smoking history, tot al pack/year 45 Irvin White RN smoking history, tot al pack/year 45 Irvin White RN smoking history, tot al pack/year 45 Mary Mejia smoking history, tot al pack/year 33 Murali Miller MD smoking history, tot al pack/day 3/4 Murali Miller MD number of years as a smoker 43 a Murali Miller MD smoking, date started 1973 Murali Miller MD social history reviewed E&M revi ewed - no changes required Murali Miller MD smoking, year quit 2018 Tk Ca cigarette use yes Tk lopes smoking status Former smoker Tk Johnson social history reviewed E&M revi ewed - no changes required Murali Miller MD smoking, year quit 2018 Ceci Marissa s cigarette use yes Ceci Pancho smoking status Former smoker Ceci Pancho social history E&M Smoking Histo ry: Chantel evans is a former smoker. B enefits of smoking cessation have been reviewed. Murali Miller MD smoking, year quit 2017 Murali alvarez MD cigarette use yes Murali Miller MD smoking status Former smoker Murali Miller MD social history reviewed E&M revi ewed - no changes required Murali Miller MD social history E&M Smoking Histo ry: Chantel evans currently smokes every day. Chantel evans has been counseled to quit. Murali Miller MD smoking/tobacco cess ation, patient education and counseling yes Murali Miller MD social history reviewed E&M revi ewed - no changes required Murali Miller MD number of grandchildren Murali Wilkerson indiraeliel Tran smoking, year quit 2016 Radha nuñez cigarette use yes Radha Tran smoking status Current every da y smoker Murali Miller MD smoking, year quit 2016 Murali alvarez MD cigarette use yes Murali Miller MD smoking status Former smoker Murali Miller MD social history reviewed E&M revi ewed - no changes required Murali Miller MD Underweight no Chai Lundb erg quit smoking, stage quit Murali jean baptiste MD social history reviewed E&M revi ewed - no changes required Murali Miller MD smoking, year quit 2017 Tk Ca cigarette use yes Tk lopes smoking status Former smoker Tk [facility] sweet Underweight yes Chai Lundb erg quit smoking, stage quit Murali jean baptiste MD social history E&M Smoking Histo ry: P atient is a former smoker. Murali Miller MD smoking, year quit 2017 Murali alvarez MD cigarette use yes Murali Miller MD smoking status Former smoker Murali Miller MD social history reviewed E&M revi ewed - no changes required Murali Miller MD FUNCTIONAL STATUS Date Observation Value Provider HRA, CV Assess/Plan, Angina (inactive) Management Plan continue current therapy Neal Neal HRA, CV Assess/Plan, Angina (inactive) Management Plan continue current therapy Keenan Gong HRA, CV Assess/Plan, Angina (inactive) Management Plan continue current therapy Lani Ventimiglia GENERAL LABORER HRA, CV Assess/Plan, Angina (inactive) Management Plan continue current therapy El Chavez HRA, CV Assess/Plan, Angina (inactive) Management Plan continue current therapy Lani Ventimiglia GENERAL LABORER HRA, CV Assess/Plan, Angina (inactive) Management Plan continue current therapy Murali Miller MD HRA, CV Assess/Plan, Angina (inactive) Management Plan continue current therapy Murali Miller MD HRA, CV Assess/Plan, Angina (inactive) Management Plan continue current therapy Kristin Lagunas NP HRA, CV Assess/Plan, Angina (inactive) Management Plan continue current therapy Murali Miller MD HRA, CV Assess/Plan, Angina (inactive) Management Plan continue current therapy Chai Hyman HRA, CV Assess/Plan, Angina (inactive) Management Plan continue current therapy, antianginal therapy Juan Jose Shay MD HRA, CV Assess/Plan, Angina (inactive) Management Plan continue current therapy Murali Miller MD HRA, CV Assess/Plan, Angina (inactive) Management Plan antianginal therapy Murali Miller MD HRA, CV Assess/Plan, Angina (inactive) Management Plan continue current therapy Murali Miller MD HRA, CV Assess/Plan, Angina (inactive) Management Plan schedule PCI Chai Hyman HRA, CV Assess/Plan, Angina (inactive) Management Plan continue current therapy Murali Miller MD HRA, CV Assess/Plan, Angina (inactive) Management Plan antianginal therapy Murali Miller MD HRA, CV Assess/Plan, Angina (inactive) Management Plan continue current therapy Murali Miller MD HRA, CV Assess/Plan, Angina (inactive) Management Plan continue current therapy Murali Miller MD FAMILY HISTORY Family Member Condition Father [place] male <55 Mother [place] female <65 Mother Family History of Dempsey dden Cardiac : Mother Family History Coron cheri Heart Disease female < 65: INSURANCE PROVIDERS Payer name Policy type / Coverage type [employer] red democr[employer] ID [employer] MED[employer]ARE [place] PPO Medicare [id number] ADVANCE DIRECTIVES Name Date DISCUSSED - NO DECISION MADE TREATMENT PLAN Date Name Performer [id number],S,c urrently pain free. W ill monitor Lani Morris [facility] [id number],S,L DL 28 on recent labs c ontinue present medication regimen H er updated medication list for this problem includes: Repatha Sureclick 140 Mg/ml Pen Injector (Evolocumab) ..... Inject 1 ml subcutaneously once every two weeks Atorvastatin 80 Mg Tablet (Atorvastatin) ..... Take 1 tablet by mouth every evening Lani Morris [facility] [id number],S,S he is asymptomatic at this time. She remains on plavix and statin H er updated medication list for this problem includes: Clopidogrel 75 Mg Tablet (Clopidogrel) ..... Take 1 tablet by mouth daily Lisinopril 20 Mg Tablet (Lisinopril) ..... Take 1 tablet by mouth once a day Nitroglycerin 0.4 Mg Tablet, Sublingual (Nitroglycerin) ..... Dissolve 1 tablet under the tongue every 5 minutes as needed for chest pain(do not exceed a total of 3 doses in 15 minutes) Lani Morris [facility] [id number],S,B P 142/86 today, it is coming back up W ill plan for home RPM I f BP consistently >140/90 will increase lisinopril back to 40 mg a day H er updated medication list for this problem includes: Lisinopril 20 Mg Tablet (Lisinopril) ..... Take 1 tablet by mouth once a day [place] Arturo [facility] [id number],S, El Pruettza i [id number],S, [facility] [id number],S, [facility] [id number],S, El jeremyza i [id number],S, El jeremyza i [id number],C, H aving intermittent brief chest pains on her right side. 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 Continue medical therapy Notices dark stools when she takes aspirin and Plavix, advised she try taking aspirin 3 times a week. TAkes Ranexa only as needed as it upsets her stomach [facility] [id number],C, H er updated medication list for this problem includes: Atorvastatin 80 Mg Tablet (Atorvastatin) ..... Take 1 tablet daily Praluent Pen 150 Mg/ml Pen Injector (Alirocumab) ..... Inject 1 ml under the skin every 2 weeks [facility] [id number],C,W ell controlled at home B P today: 131/80 P rior BP: 136/85 (06/15/2021) Labs Reviewed: C reat: 0.67 (11/15/2017) C hol: 102 (11/01/2018) HDL: 64 (11/01/2018) Her updated medication list for this problem includes: Lisinopril 40 Mg Tablet (Lisinopril) ..... Take 1 tablet by mouth once a day [facility] [id number][facility], Robel marion doing well, Pt denies SOB and chest pain. Currently on quinapril 20 mg BID with much better (few spikes), continue 20 mg BID. H er updated medication list for this problem includes: Plavix 75 Mg Tablet (Clopidogrel) ..... Take 1 tablet daily Quinapril 10 Mg Tablet (Quinapril) ..... 1 tablet twice a day Ranexa 500 Mg Tablet Extended Release 12 Hr (Ranolazine) ..... Take 1 tablet by mouth twice a day Nitrostat 0.4 Mg Tablet, Sublingual (Nitroglycerin) ..... Dissolve 1 tablet under the tongue every 5 minutes as needed for chest pain. do not exceed a total of 3 doses in 15 minutes. Murali Miller MD [id number],C, H er updated medication list for this problem includes: Atorvastatin 80 Mg Tablet (Atorvastatin) ..... Take 1 tablet daily Praluent Pen 150 Mg/ml Pen Injector (Alirocumab) ..... Inject 1 ml under the skin every 2 weeks Murali Miller MD [id number],C, B P today: 136/85 P rior BP: 140/90 (05/04/2021) Labs Reviewed: C reat: 0.67 (11/15/2017) C hol: 102 (11/01/2018) HDL: 64 (11/01/2018) Her updated medication list for this problem includes: Quinapril 10 Mg Tablet (Quinapril) ..... 1 tablet twice a day Murali Miller MD [id number],C,. Will prescribe Plavix 75 mg for cardiovascular prevention. If she has any GI bleedings, we will have to discontinue the medication. Valencia Cheney [id number],C, H er updated medication list for this problem includes: Atorvastatin 80 Mg Tablet (Atorvastatin) ..... Take 1 tablet daily Praluent Pen 150 Mg/ml Pen Injector (Alirocumab) ..... Inject 1 ml under the skin every 2 weeks Valencia Cheney [id number],C,P t is feeling well, Pt denies SOB and chest pain. Echo showed normal EF. During the [place], the BP was up to 180 systolic, associated with chest pain. Went to the ER. Now she is taking the quinapril 10 mg BID, BP well controlled. Will continue current regimen. B P today: 140/90 P rior BP: 162/88 (03/30/2021) Labs Reviewed: C reat: 0.67 (11/15/2017) C hol: 102 (11/01/2018) HDL: 64 (11/01/2018) Her updated medication list for this problem includes: Quinapril 10 Mg Tablet (Quinapril) ..... 1 tablet twice a day Valencia Noni [id number],C,P t is feeling well, Pt denies SOB and chest pain. Echo showed normal EF. During the [place], the BP was up to 180 systolic, associated with chest pain. Went to the ER. Now she is taking the quinapril 10 mg BID, BP well controlled. Will continue current regimen. Will prescribe Plavix 75 mg for cardiovascular prevention. If she has any GI bleedings, we will have to discontinue the medication. Her updated medication list for this problem includes: Plavix 75 Mg Tablet (Clopidogrel) ..... Take 1 tablet daily Quinapril 10 Mg Tablet (Quinapril) ..... 1 tablet twice a day Ranexa 500 Mg Tablet Extended Release 12 Hr (Ranolazine) ..... Take 1 tablet by mouth twice a day Nitrostat 0.4 Mg Tablet, Sublingual (Nitroglycerin) ..... Dissolve 1 tablet under the tongue every 5 minutes as needed for chest pain. do not exceed a total of 3 doses in 15 minutes. Valencia Cheney [id number],S, H as discontinued aspirin and Plavix due to recurrent GI bleed Valencia Cheney [id number],C, H er updated medication list for this problem includes: Praluent Pen 150 Mg/ml Pen Injector (Alirocumab) ..... Inject 1 ml under the skin every 2 weeks Atorvastatin 80 Mg Tablet (Atorvastatin) ..... Take 1 tablet once a day Valencia Noni [id number],C,P t had a visit to [facility] last night due to chest pain and mild SOB. Her BP was elevated 180s systolic. Troponins were negative. Today she denies any chest pain or SOB. BP is elevated, but she states it is controlled at home. She has not been taking quinapril twice a day as recommended, as she has had dizzy spells because her BP drops too low. I recommended she take a second pill in the evening if her BP is elevated. B P today: 162/88 P rior BP: 177/97 (02/11/2021) Labs Reviewed: C reat: 0.67 (11/15/2017) C hol: 102 (11/01/2018) HDL: 64 (11/01/2018) H er updated medication list for this problem includes: Quinapril 10 Mg Tablet (Quinapril) ..... 1 tablet twice a day Valencia Noni [id number],C,P t had a visit to [facility] last night due to chest pain and mild SOB. Her BP was elevated 180s systolic. Troponins were negative. Today she denies any chest pain or SOB. BP is elevated, but she states it is controlled at home. She has not been taking quinapril twice a day as recommended, as she has had dizzy spells because her BP drops too low. I recommended she take a second pill in the evening if her BP is elevated. H er updated medication list for this problem includes: Quinapril 10 Mg Tablet (Quinapril) ..... 1 tablet twice a day Ranexa 500 Mg Tablet Extended Release 12 Hr (Ranolazine) ..... Take 1 tablet by mouth twice a day Nitrostat 0.4 Mg Tablet, Sublingual (Nitroglycerin) ..... Dissolve 1 tablet under the tongue every 5 minutes as needed for chest pain. do not exceed a total of 3 doses in 15 minutes. Valencia Cheney [id number],S, Valencia ball [id number],C, H er updated medication list for this problem includes: Atorvastatin 80 Mg Tablet (Atorvastatin) ..... Take 1 tablet once a day Praluent Pen 150 Mg/ml Pen Injector (Alirocumab) ..... Inject 1 ml under the skin every 2 weeks Valencia Cheney [id number],C,H as discontinued aspirin and Plavix due to recurrent GI bleed Valencia Cheney [id number],C,B P elevated today, but she did not take her medicaiton. We discussed possibly increasing the dose of quinapril . She prefers not to increase, she will check her BP at home and will take two if BP is elevated. B P today: 177/97 P rior BP: 160/100 (02/20/2020) Labs Reviewed: C reat: 0.67 (11/15/2017) C hol: 102 (11/01/2018) HDL: 64 (11/01/2018) Her updated medication list for this problem includes: Quinapril 10 Mg Tablet (Quinapril) ..... 1 tablet once a day Valencia Cheney [id number],C,N o further episodes of CP since May 2019. BP elevated today, but she did not take her medicaiton. We discussed possibly increasing the dose of quinapril . She prefers not to increase, she will check her BP at home and will take two if BP is elevated. T he following medications were removed from the medication list: Plavix 75 Mg Tablet (Clopidogrel) ..... 1 tablet once a day Her updated medication list for this problem includes: Nitrostat 0.4 Mg Tablet, Sublingual (Nitroglycerin) ..... Dissolve 1 tablet under the tongue every 5 minutes as needed for chest pain. do not exceed a total of 3 doses in 15 minutes. Quinapril 10 Mg Tablet (Quinapril) ..... 1 tablet once a day Valencia Cheney Cardiology:shannon woo edrx B P today: 158/97 P rior BP: 146/90 (09/26/2023) Labs Reviewed: C reat: 0.67 (11/15/2017) C hol: 102 (11/01/2018) HDL: 64 (11/01/2018) LDL: 27 (11/01/2018) T (11/01/2018) Her updated medication list for this problem includes: Lisinopril 20 Mg Tablet (Lisinopril) ..... Take 1 tablet by mouth every day Neal Kleinrosaleedee Cardiology:LDL 45; c ontinue repatha. H er updated medication list for this problem includes: Repatha Sureclick 140 Mg/ml Pen Injector (Evolocumab) ..... Administer 1 ml under the skin 1 time every 2 weeks This visit has been a part of the consistent, comprehensive, and ongoing management of the chronic medical condition(s) listed above for the patient. Neal Neal Cardiology Neal Neal Cardiology: N o CP or SOB. Neal Neal Cardiology: n o CP w ill obtain f/u echo Neal Ángel Cardiology:was origi yesi noting on statin, improved since discontinuing; also notes improvement with magnesium sup. should continue. Neal Ángel Cardiology:Pt also c /o muscle aches in the leg, attributing it to her statin. Most recent LDL was 27. In view of leg aches and current use of repatha, we will stop atorvastatin and check LDL again at 6 month f/u. T he following medications were removed from the medication list: Atorvastatin 80 Mg Tablet (Atorvastatin) ..... Take 1 tablet by mouth every evening Her updated medication list for this problem includes: Repatha Sureclick 140 Mg/ml Pen Injector (Evolocumab) ..... Administer 1 ml under the skin 1 time every 2 weeks Neal Ángel Cardiology:Pt compla ins of infrequent episodes of chest pain on exertion, lasting for a few hours. Last episode 2 months. Most recent echo showed normal LVEF. Pt would pefer to treat chest pain medically. H er updated medication list for this problem includes: Clopidogrel 75 Mg Tablet (Clopidogrel) ..... Take 1 tablet by mouth daily Lisinopril 20 Mg Tablet (Lisinopril) ..... Take 1 tablet by mouth once a day Nitroglycerin 0.4 Mg Tablet, Sublingual (Nitroglycerin) ..... Dissolve 1 tablet under the tongue every 5 minutes as needed for chest pain(do not exceed a total of 3 doses in 15 minutes) Neal Neal Cardiology: B P today: 146/90 P rior BP: 123/83 (03/28/2023) Her updated medication list for this problem includes: Lisinopril 20 Mg Tablet (Lisinopril) ..... Take 1 tablet by mouth once a day This visit has been a part of the consistent, comprehensive, and ongoing management of the chronic medical condition(s) listed above for the patient. Neal Neal Cardiology Murali Miller MD Cardiology:no CP w ill obtain f/u echo Murali Miller MD Cardiology: H er updated medication list for this problem includes: Atorvastatin 80 Mg Tablet (Atorvastatin) ..... Take 1 tablet by mouth every evening Repatha Sureclick 140 Mg/ml Pen Injector (Evolocumab) ..... Inject 1 ml subcutaneously once every two weeks Murali Millre MD Cardiology: B P today: 123/83 P rior BP: 142/86 (11/17/2022) Labs Reviewed: C reat: 0.67 (11/15/2017) C hol: 102 (11/01/2018) HDL: 64 (11/01/2018) LDL: 27 (11/01/2018) T (11/01/2018) Her updated medication list for this problem includes: Lisinopril 20 Mg Tablet (Lisinopril) ..... Take 1 tablet by mouth once a day Murali Miller MD Cardiology:No CP or SOB. Lp(a) 208. WIll obtain f/uy echo. Yuliet offer treatment for Lp(a) when it is available. Murali Miller MD Cardiology:currently pain free. W ill monitor Lani Morris GENERAL LABORER Cardiology:LDL 28 on recent labs c ontinue present medication regimen H er updated medication list for this problem includes: Repatha Sureclick 140 Mg/ml Pen Injector (Evolocumab) ..... Inject 1 ml subcutaneously once every two weeks Atorvastatin 80 Mg Tablet (Atorvastatin) ..... Take 1 tablet by mouth every evening [facility] Cardiology:She is as ymptomatic at this time. She remains on plavix and statin H er updated medication list for this problem includes: Clopidogrel 75 Mg Tablet (Clopidogrel) ..... Take 1 tablet by mouth daily Lisinopril 20 Mg Tablet (Lisinopril) ..... Take 1 tablet by mouth once a day Nitroglycerin 0.4 Mg Tablet, Sublingual (Nitroglycerin) ..... Dissolve 1 tablet under the tongue every 5 minutes as needed for chest pain(do not exceed a total of 3 doses in 15 minutes) [facility] Cardiology:BP 142/86 today, it is coming back up W ill plan for home RPM I f BP consistently >140/90 will increase lisinopril back to 40 mg a day H er updated medication list for this problem includes: Lisinopril 20 Mg Tablet (Lisinopril) ..... Take 1 tablet by mouth once a day [facility] Cardiology [facility] Card[facility] Card[facility] Cardiology [facility] Cardiology [facility] Cardiology: H aving intermittent brief chest pains on her right side. 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 Continue medical therapy Notices dark stools when she takes aspirin and Plavix, advised she try taking aspirin 3 times a week. TAkes Ranexa only as needed as it upsets her stomach Valencia Cheney Cardiology: H er updated medication list for this problem includes: Atorvastatin 80 Mg Tablet (Atorvastatin) ..... Take 1 tablet daily Praluent Pen 150 Mg/ml Pen Injector (Alirocumab) ..... Inject 1 ml under the skin every 2 weeks [facility] Cardiology:Well cont rolled at home B P today: 131/80 P rior BP: 136/85 (06/15/2021) Labs Reviewed: C reat: 0.67 (11/15/2017) C hol: 102 (11/01/2018) HDL: 64 (11/01/2018) & #13;Her updated medication list for this problem includes: Lisinopril 40 Mg Tablet (Lisinopril) ..... Take 1 tablet by mouth once a day Lani Morris [facility] Cardiology: O doni doing well, Pt denies SOB and chest pain. Currently on quinapril 20 mg BID with much better (few spikes), continue 20 mg BID. H er updated medication list for this problem includes: Plavix 75 Mg Tablet (Clopidogrel) ..... Take 1 tablet daily Quinapril 10 Mg Tablet (Quinapril) ..... 1 tablet twice a day Ranexa 500 Mg Tablet Extended Release 12 Hr (Ranolazine) ..... Take 1 tablet by mouth twice a day Nitrostat 0.4 Mg Tablet, Sublingual (Nitroglycerin) ..... Dissolve 1 tablet under the tongue every 5 minutes as needed for chest pain. do not exceed a total of 3 doses in 15 minutes. Murali Miller MD Cardiology: H er updated medication list for this problem includes: Atorvastatin 80 Mg Tablet (Atorvastatin) ..... Take 1 tablet daily Praluent Pen 150 Mg/ml Pen Injector (Alirocumab) ..... Inject 1 ml under the skin every 2 weeks Murali Miller MD Cardiology: B P today: 136/85 P rior BP: 140/90 (05/04/2021) Labs Reviewed: C reat: 0.67 (11/15/2017) C hol: 102 (11/01/2018) HDL: 64 (11/01/2018) Her updated medication list for this problem includes: Quinapril 10 Mg Tablet (Quinapril) ..... 1 tablet twice a day Murali Miller MD Cardiology:. Will pr escribe Plavix 75 mg for cardiovascular prevention. If she has any GI bleedings, we will have to discontinue the medication. Valencia Cheney Cardiology: H er updated medication list for this problem includes: Atorvastatin 80 Mg Tablet (Atorvastatin) ..... Take 1 tablet daily Praluent Pen 150 Mg/ml Pen Injector (Alirocumab) ..... Inject 1 ml under the skin every 2 weeks Valencia Noni Cardiology:Pt is fee ling well, Pt denies SOB and chest pain. Echo showed normal EF. During the [place], the BP was up to 180 systolic, associated with chest pain. Went to the ER. Now she is taking the quinapril 10 mg BID, BP well controlled. Will continue current regimen. B P today: 140/90 P rior BP: 162/88 (03/30/2021) Labs Reviewed: C reat: 0.67 (11/15/2017) C hol: 102 (11/01/2018) HDL: 64 (11/01/2018) Her updated medication list for this problem includes: Quinapril 10 Mg Tablet (Quinapril) ..... 1 tablet twice a day Valencia Cheney Cardiology:Pt is fee ling well, Pt denies SOB and chest pain. Echo showed normal EF. During the [place] Bowl, the BP was up to 180 systolic, associated with chest pain. Went to the ER. Now she is taking the quinapril 10 mg BID, BP well controlled. Will continue current regimen. Will prescribe Plavix 75 mg for cardiovascular prevention. If she has any GI bleedings, we will have to discontinue the medication. Her updated medication list for this problem includes: Plavix 75 Mg Tablet (Clopidogrel) ..... Take 1 tablet daily Quinapril 10 Mg Tablet (Quinapril) ..... 1 tablet twice a day Ranexa 500 Mg Tablet Extended Release 12 Hr (Ranolazine) ..... Take 1 tablet by mouth twice a day Nitrostat 0.4 Mg Tablet, Sublingual (Nitroglycerin) ..... Dissolve 1 tablet under the tongue every 5 minutes as needed for chest pain. do not exceed a total of 3 doses in 15 minutes. [facility]: H as discontinued aspirin and Plavix due to recurrent GI bleed [facility]: H er updated medication list for this problem includes: Praluent Pen 150 Mg/ml Pen Injector (Alirocumab) ..... Inject 1 ml under the skin every 2 weeks Atorvastatin 80 Mg Tablet (Atorvastatin) ..... Take 1 tablet once a day Valencia Noni [facility]:Pt had a visit to [facility] last night due to chest pain and mild SOB. Her BP was elevated 180s systolic. Troponins were negative. Today she denies any chest pain or SOB. BP is elevated, but she states it is controlled at home. She has not been taking quinapril twice a day as recommended, as she has had dizzy spells because her BP drops too low. I recommended she take a second pill in the evening if her BP is elevated. B P today: 162/88 P rior BP: 177/97 (02/11/2021) Labs Reviewed: C reat: 0.67 (11/15/2017) C hol: 102 (11/01/2018) HDL: 64 (11/01/2018) Her updated medication list for this problem includes: Quinapril 10 Mg Tablet (Quinapril) ..... 1 tablet twice a day Valencia Noni [facility]:Pt had a visit to [facility] last night due to chest pain and mild SOB. Her BP was elevated 180s systolic. Troponins were negative. Today she denies any chest pain or SOB. BP is elevated, but she states it is controlled at home. She has not been taking quinapril twice a day as recommended, as she has had dizzy spells because her BP drops too low. I recommended she take a second pill in the evening if her BP is elevated. H er updated medication list for this problem includes: Quinapril 10 Mg Tablet (Quinapril) ..... 1 tablet twice a day Ranexa 500 Mg Tablet Extended Release 12 Hr (Ranolazine) ..... Take 1 tablet by mouth twice a day Nitrostat 0.4 Mg Tablet, Sublingual (Nitroglycerin) ..... Dissolve 1 tablet under the tongue every 5 minutes as needed for chest pain. do not exceed a total of 3 doses in 15 minutes. [facility] Valencia Oakes eyer [facility]: H er updated medication list for this problem includes: Atorvastatin 80 Mg Tablet (Atorvastatin) ..... Take 1 tablet once a day Praluent Pen 150 Mg/ml Pen Injector (Alirocumab) ..... Inject 1 ml under the skin every 2 weeks Valencia [facility]:Has disco ntinued aspirin and Plavix due to recurrent GI bleed Valencia Cheney [facility]:BP elevat ed today, but she did not take her medicaiton. We discussed possibly increasing the dose of quinapril . She prefers not to increase, she will check her BP at home and will take two if BP is elevated. B P today: 177/97 P rior BP: 160/100 (02/20/2020) Labs Reviewed: C reat: 0.67 (11/15/2017) C hol: 102 (11/01/2018) HDL: 64 (11/01/2018) Her updated medication list for this problem includes: Quinapril 10 Mg Tablet (Quinapril) ..... 1 tablet once a day [facility]:No furthe r episodes of CP since May 2019. BP elevated today, but she did not take her medicaiton. We discussed possibly increasing the dose of quinapril . She prefers not to increase, she will check her BP at home and will take two if BP is elevated. T he following medications were removed from the medication list: Plavix 75 Mg Tablet (Clopidogrel) ..... 1 tablet once a day H er updated medication list for this problem includes: Nitrostat 0.4 Mg Tablet, Sublingual (Nitroglycerin) ..... Dissolve 1 tablet under the tongue every 5 minutes as needed for chest pain. do not exceed a total of 3 doses in 15 minutes. Quinapril 10 Mg Tablet (Quinapril) ..... 1 tablet once a day Valencia [facility]ney [facility]:Her updat ed medication list for this problem includes: Praluent 150 Mg/ml Subcutaneous Solution Pen-injector (Alirocumab) ..... Inject subcutaneously every 2 weeks Atorvastatin Calcium 80 Mg Oral Tablet (Atorvastatin calcium) ..... Take one tablet daily Chai Hyman [facility]:BP today: 160/100 P rior BP: 122/76 (05/14/2019) Her updated medication list for this problem includes: Quinapril Hcl 10 Mg Oral Tablet (Quinapril hcl) ..... One tab. daily Chai Hyman Cardiology:Having so me chest pain still but not as much as back in April. At this time, we will continue medical management. In 2018, we were able to cross the OM with a wire but not with a balloon. If she has more chest pain, will consider laser atherectomy of the OM. Could not tolerate Ranexa due to GI symptoms. Chai [facility]:Having so me chest pain still but not as much as back in April. At this time, we will continue medical management. In 2018, we were able to cross the OM with a wire but not with a balloon. If she has more chest pain, will consider laser atherectomy of the OM. Could not tolerate Ranexa due to GI symptoms. [facility]:Having so me chest pain still but not as much as back in April. At this time, we will continue medical management. In 2018, we were able to cross the OM with a wire but not with a balloon. If she has more chest pain, will consider laser atherectomy of the OM. Could not tolerate Ranexa due to GI symptoms and her ASA was also discontinued by GI. Continues on Plavix. Her updated medication list for this problem includes: Plavix 75 Mg Oral Tablet (Clopidogrel bisulfate) ..... One tab. daily Quinapril Hcl 10 Mg Oral Tablet (Quinapril hcl) ..... One tab. daily Nitrostat 0.4 Mg Sublingual Tablet Sublingual (Nitroglycerin) ..... Apply one tab under tongue every 5 minutes for 3 total doses as needed for chest pain. if no relief after 3rd dose, go to er Chai Urbanoberg Cardiology follow up :PLANS OR RESUMING PLAVIX AFTER DENTAL WORK IS COMPLETED T he following medications were removed from the medication list: Ranexa 1000 Mg Oral Tablet Extended Release 12 Hour (Ranolazine) ..... One tab. twice daily for chronic angina Her updated medication list for this problem includes: Ranexa 500 Mg Oral Tablet Extended Release 12 Hour (Ranolazine) ..... One tab. twice daily for chronic angina Plavix 75 Mg Oral Tablet (Clopidogrel bisulfate) ..... One tab. daily Quinapril Hcl 10 Mg Oral Tablet (Quinapril hcl) ..... One tab. daily Nitrostat 0.4 Mg Sublingual Tablet Sublingual (Nitroglycerin) ..... Apply one tab under tongue every 5 minutes for 3 total doses as needed for chest pain. if no relief after 3rd dose, go to er Aspir-81 81 Mg Oral Tablet Delayed Release (Aspirin) ..... 1 tab daily Juan Jose Shay MD Cardiology follow up : C hest pain is improved with Ranexa (she did not do ECP). At this time, she has rare episodes of chest pain and rarely uses NTG. She's a candidate for a colonoscopy and she can hold ASA/Plavix for any duration decided by the GI doctor. It has been more than a year since her stents and she would like to stop Plavix (due to bruising). The following medications were removed from the medication list: Plavix 75 Mg Oral Tablet (Clopidogrel bisulfate) ..... Take once daily Her updated medication list for this problem includes: Quinapril Hcl 10 Mg Oral Tablet (Quinapril hcl) ..... One tab. daily Ranexa 1000 Mg Oral Tablet Extended Release 12 Hour (Ranolazine) ..... One tab. twice daily for chronic angina Nitrostat 0.4 Mg Sublingual Tablet Sublingual (Nitroglycerin) ..... Apply one tab under tongue every 5 minutes for 3 total doses as needed for chest pain. if no relief after 3rd dose, go to er Aspir-81 81 Mg Oral Tablet Delayed Release (Aspirin) ..... 1 tab daily Juan Jose Shay MD Cardiology follow up : H er updated medication list for this problem includes: Praluent 150 Mg/ml Subcutaneous Solution Pen-injector (Alirocumab) ..... Inject one pen every 14 days Atorvastatin Calcium 80 Mg Oral Tablet (Atorvastatin calcium) ..... Take one tablet daily Juan Jose Shay MD Cardiology follow up : B P today: 122/76 P rior BP: 110/62 (02/12/2019) Labs Reviewed: C reat: 0.67 (11/15/2017) C hol: 102 (11/01/2018) HDL: 64 (11/01/2018) The following medications were removed from the medication list: Losartan Potassium-hctz 100-12.5 Mg Oral Tablet (Losartan potassium-hctz) ..... 1/2 tab ffor b/p 130 in am Her updated medication list for this problem includes: Quinapril Hcl 10 Mg Oral Tablet (Quinapril hcl) ..... One tab. daily Aspir-81 81 Mg Oral Tablet Delayed Release (Aspirin) ..... 1 tab daily Juan Jose Shay MD Cardiology follow up :recurrent anigina will try ranexa 500mb bid has been off ranexa 1000mg bid C hest pain is improved with Ranexa (she did not do ECP). At this time, she has rare episodes of chest pain and rarely uses NTG. Juan Jose Shay MD Cardiology:Will cont inue annual surveillance with low-dose chest CT. Chai [facility]iology:CHOL: 102 (11/01/2018) HDL: 64 (11/01/2018) LDL: 27 (11/01/2018) TRI (11/01/2018) Her updated medication list for this problem includes: Praluent 150 Mg/ml Subcutaneous Solution Pen-injector (Alirocumab) ..... Inject one pen every 14 days Atorvastatin Calcium 80 Mg Oral Tablet (Atorvastatin calcium) ..... Take one tablet daily Chai Hyman Cardiology:BP today: 110/62 P rior BP: 150/83 (03/06/2018) Her updated medication list for this problem includes: Quinapril Hcl 10 Mg Oral Tablet (Quinapril hcl) ..... One tab. daily Losartan Potassium-hctz 100-12.5 Mg Oral Tablet (Losartan potassium-hctz) ..... 1/2 tab ffor b/p 130 in am Chai Hyman Cardiology:Chest mona n is improved with Ranexa (she did not do ECP). At this time, she has rare episodes of chest pain and rarely uses NTG. She's a candidate for a colonoscopy and she can hold ASA/Plavix for any duration decided by the GI doctor. It has been more than a year since her stents and she would like to stop Plavix (due to bruising). The following medications were removed from the medication list: Plavix 75 Mg Oral Tablet (Clopidogrel bisulfate) ..... Take once daily Her updated medication list for this problem includes: Quinapril Hcl 10 Mg Oral Tablet (Quinapril hcl) ..... One tab. daily Ranexa 1000 Mg Oral Tablet Extended Release 12 Hour (Ranolazine) ..... One tab. twice daily for chronic angina Nitrostat 0.4 Mg Sublingual Tablet Sublingual (Nitroglycerin) ..... Apply one tab under tongue every 5 minutes for 3 total doses as needed for chest pain. if no relief after 3rd dose, go to er Aspir-81 81 Mg Oral Tablet Delayed Release (Aspirin) ..... 1 tab daily Chai Boogie Cardiology:Chest mona n is improved with Ranexa (she did not do ECP). At this time, she has rare episodes of chest pain and rarely uses NTG. Chai Hyman Cardiology:This mikaela ent has angina (defined as chest pain, chest discomfort, or pain in arms, neck, jaw, shoulder, or back, and may include symptoms of shortness of breath, fatigue, dizziness, nausea, or diaphoresis) of [place] Cardiovascular Society Class III (defined as symptoms with everyday living activities, i.e. moderate limitation) or [place] Cardiovascular Society Class IV (defined as inability to perform any activity without angina or angina at rest, i.e. severe limitation). T his patient?s angina is disabling and in my opinion is not readily amenable to surgical intervention by PTCA or cardiac bypass because the patient's coronary anatomy is not readily amenable to such procedures. Her updated medication list for this problem includes: Isosorbide Mononitrate Er 30 Mg Oral Tablet Extended Release 24 Hour (Isosorbide mononitrate) ..... Take one tablet daily Ranexa 1000 Mg Oral Tablet Extended Release 12 Hour (Ranolazine) ..... One tab. twice daily for chronic angina Nitrostat 0.4 Mg Sublingual Tablet Sublingual (Nitroglycerin) ..... Apply one tab under tongue every 5 minutes for 3 total doses as needed for chest pain. if no relief after 3rd dose, go to er Murali Miller MD Cardiology:Orders: L IPID PANEL (7600) H EPATIC FUNCTION PANEL (23785) Her updated medication list for this problem includes: Atorvastatin Calcium 80 Mg Oral Tablet (Atorvastatin calcium) ..... Take one tablet daily Murali Miller MD Cardiology:BP today: 150/83 P rior BP: 142/84 (01/04/2018) Her updated medication list for this problem includes: Accupril 10 Mg Oral Tablet (Quinapril hcl) ..... One tab daily Murali Miller MD Cardiology:The patie nt is between 55-77 years old and has smoked at least 30 pack years. The patient is either a current smoker or has quit within the past 15 years. T he patient is recommended to have low dose CT scan for lung cancer screening. Has been counseled regarding the importance of tobacco cessation and abstinence. Shared decision making during this office visit included discussion of the benefits and harms of screening, possible future recommendations of follow-up diagnostic testing, and total amount of radiation exposure. The patient was recommended to have annual low dose CT scan for lung cancer screening and is willing to undergo diagnosis and treatment. Murali Miller MD Cardiology Murali Miller MD Cardiology:This mikaela ent has angina (defined as chest pain, chest discomfort, or pain in arms, neck, jaw, shoulder, or back, and may include symptoms of shortness of breath, fatigue, dizziness, nausea, or diaphoresis) of [place] Cardiovascular Society Class III (defined as symptoms with everyday living activities, i.e. moderate limitation) or [place] Cardiovascular Society Class IV (defined as inability to perform any activity without angina or angina at rest, i.e. severe limitation). T his patient?s angina is disabling and in my opinion is not readily amenable to surgical intervention by PTCA or cardiac bypass because the patient's coronary anatomy is not readily amenable to such procedures. Her updated medication list for this problem includes: Accupril 10 Mg Oral Tablet (Quinapril hcl) ..... One tab daily Isosorbide Mononitrate Er 30 Mg Oral Tablet Extended Release 24 Hour (Isosorbide mononitrate) ..... Take one tablet daily Ranexa 1000 Mg Oral Tablet Extended Release 12 Hour (Ranolazine) ..... One tab. twice daily for chronic angina Plavix 75 Mg Oral Tablet (Clopidogrel bisulfate) ..... Take once daily Nitrostat 0.4 Mg Sublingual Tablet Sublingual (Nitroglycerin) ..... Apply one tab under tongue every 5 minutes for 3 total doses as needed for chest pain. if no relief after 3rd dose, go to er Aspir-81 81 Mg Oral Tablet Delayed Release (Aspirin) ..... 1 tab daily Murali Miller MD Cardiology hospital follow up [facility] follow up:CHOL: 175 (11/15/2017) HDL: 59 (11/15/2017) TRI (11/15/2017) LDL: 91 (11/15/2017) Her updated medication list for this problem includes: Atorvastatin Calcium 40 Mg Oral Tablet (Atorvastatin calcium) ..... One tablet daily [facility] follow up:BP today: 142/84 P rior BP: 138/80 (12/07/2017) The following medications were stopped: Metoprolol Tartrate 25 Mg Oral Tablet (Metoprolol tartrate) ..... Take one tab daily [facility] follow up [facility] follow up:Metoprolol was stopped. Wearing a monitor. [facility] follow up:The following medications were stopped: Ranexa 500 Mg Oral Tablet Extended Release 12 Hour (Ranolazine) ..... Take two tablets twice a day Metoprolol Tartrate 25 Mg Oral Tablet (Metoprolol tartrate) ..... Take one tab daily Her updated medication list for this problem includes: Plavix 75 Mg Oral Tablet (Clopidogrel bisulfate) ..... Take once daily Nitrostat 0.4 Mg Sublingual Tablet Sublingual (Nitroglycerin) ..... Apply one tab under tongue every 5 minutes for 3 total doses as needed for chest pain. if no relief after 3rd dose, go to er Aspir-81 81 Mg Oral Tablet Delayed Release (Aspirin) ..... 1 tab daily [facility] follow up:BP today: 138/80 P rior BP: 126/78 (11/14/2017) Her updated medication list for this problem includes: Metoprolol Tartrate 25 Mg Oral Tablet (Metoprolol tartrate) ..... Take one tab daily [facility] follow up:CHOL: 175 (11/15/2017) HDL: 59 (11/15/2017) TRI (11/15/2017) LDL: 91 (11/15/2017) Her updated medication list for this problem includes: Atorvastatin Calcium 40 Mg Oral Tablet (Atorvastatin calcium) ..... One tablet daily [facility] follow up:Stopped smoking since cardiac cath. 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 She also has moderate disease of the LAD and RCA. She continues to have chest pain on maximal tolerable medical therapy. Will schedule iFR/FFR of the RCA and LAD and intervention of the PDA and OM and possibly the diagonal. 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 She also has moderate disease of the LAD and RCA. She continues to have chest pain on maximal tolerable medical therapy. Will schedule iFR/FFR of the RCA and LAD and intervention of the PDA and OM and possibly the diagonal. [facility] Cardiology:CHOL: 222 (11/11/2016) LDL: 138 (11/11/2016) HDL: 70 (11/11/2016) T (11/11/2016) Her updated medication list for this problem includes: Atorvastatin Calcium 40 Mg Oral Tablet (Atorvastatin calcium) ..... One tablet daily Orders: L IPID PANEL (9173) [facility] Cardiology:Advised to quit. Murali Miller MD Cardiology:Orders: C ardiac Cath - Left - [facility] (*) Murali Miller MD Cardiology:Orders: E KG (CPT-74273) C ardiac Cath - Left - [facility] (*) Her updated medication list for this problem includes: Nitrostat 0.4 Mg Sublingual Tablet Sublingual (Nitroglycerin) ..... Apply one tab under tongue every 5 minutes for 3 total doses as needed for chest pain. if no relief after 3rd dose, go to er Aspir-81 81 Mg Oral Tablet Delayed Release (Aspirin) ..... 1 tab daily Accupril 10 Mg Oral Tablet (Quinapril hcl) ..... 1 tab daily Murali Miller MD Cardiology:Her [facility] ed medication list for this problem includes: Atorvastatin Calcium 40 Mg Oral Tablet (Atorvastatin calcium) ..... One tablet daily Chai Boogie Cardiology:BP today: 110/80 P rior BP: 166/91 (11/15/2016) Her updated medication list for this problem includes: Accupril 10 Mg Oral Tablet (Quinapril hcl) ..... 1 tab daily Chai Boogie Cardiology:Pt contin ues to have episodes of chest tightness. Today in the office she had some relief with ntg. She will try ntg at home. If she needs to use it frequently we will schedule a cardiac cath. Her updated medication list for this problem includes: Nitrostat 0.4 Mg Sublingual Tablet Sublingual (Nitroglycerin) ..... Apply one tab under tongue every 5 minutes for 3 total doses as needed for chest pain. if no relief after 3rd dose, go to er Aspir-81 81 Mg Oral Tablet Delayed Release (Aspirin) ..... 1 tab daily Accupril 10 Mg Oral Tablet (Quinapril hcl) ..... 1 tab daily Chai Hyman Cardiology:BP today: 166/91 P rior BP: 110/60 (10/25/2016) Her updated medication list for this problem includes: Accupril 10 Mg Oral Tabs (Quinapril hcl) ..... 1 tab daily Chai Hyman Cardiology Chai lomeli Cardiology:LDL is 13 8 and we will switch from Zocor to Lipitor (40mg daily). CHOL: 222 (11/11/2016) HDL: 70 (11/11/2016) T (11/11/2016) LDL: 138 (11/11/2016) [facility]ai [facility]:JONI's and venous duplex were essentially normal. [facility] Cardiology:Myoview s can was normal. Chest pain is now rare. If she has more chest pain will consider cardiac cath. Chai [facility]:Echo show ed normal EF and myoview scan was normal. Chest pain is now rare. If she has more chest pain will consider cardiac cath. Her updated medication list for this problem includes: Aspir-81 81 Mg Oral Tbec (Aspirin) ..... 1 tab daily Accupril 10 Mg Oral Tabs (Quinapril hcl) ..... 1 tab daily [facility] Cardiology New Patient:Quit a fe w weeks ago. [facility] Cardiology New Patie nt:Complains of leg pain and numbness. Orders: V enous Doppler Bilateral LE - Reflux (CPT-98782) A rterial Duplex Bi-Lower EX (CPT-65167) [facility] Cardiology New Patie nt:Orders: L IPID PANEL (9000) H EMOGLOBIN A1c (496) Her updated medication list for this problem includes: Simvastatin 40 Mg Oral Tabs (Simvastatin) ..... 1 tab daily [facility] Cardiology New Patie nt:BP today: 110/60 Her updated medication list for this problem includes: Accupril 10 Mg Oral Tabs (Quinapril hcl) ..... 1 tab daily [facility] Cardiology New Patie nt:Orders: C omplete Echo (CPT-85399) [facility] Cardiology New Patie nt:The patient complains of chest pain. Symptoms associated with pain include shortness of breath. Pt underwent CT calcium scoring and the score was 501. She has a strong family hx. She's a former smoker and has high choelsterol. Orders: C BC (INCLUDES DIFF/PLT) (6399) F ERRITIN (457) F OLATE, SERUM (466) I [place] AND TOTAL IRON BINDING CAPACITY (2073) R ETICULOCYTE COUNT (793) V ITAMIN B12 (927) C omplete Echo (CPT-99867) S TR - Nuclear (CPT-41049) P ROBNP, N TERMINAL (18636) Chai [facility] New Patie nt:Pain feels like heaviness. Pain is worse with no provocation. Symptoms associated with pain include shortness of breath. Pt underwent CT calcium scoring and the score was 501. She has a strong family hx. She's a former smoker and has high cholesterol. Orders: S NOMED-CT: [id number] Current Medications Documented ([id number]) E KG (CPT-27262) C omplete Echo (CPT-89966) S TR - Nuclear (CPT-81667) Chai [facility] New Patie nt:Pt underwent CT calcium scoring and the score was 501. She has a strong family hx. She's a former smoker and has high cholesterol. Complaining of chest pain and SOB. Will schedule echo and stress myoview. Chai Urbanoberg Date Name Complete Echo LIPID PANEL Complete Echo CRP, high sensitivit y Lipoprotein (a) RPM (remote patient monitoring) COVID19 nasal swab ( LC) LIPID PANEL RPM (remote patient monitoring) Complete Echo Complete Echo Low Dose Lung CT HEPATIC FUNCTION CHIN EL LIPID PANEL HEPATIC FUNCTION CHIN EL LIPID PANEL Low Dose Lung CT HEPATIC FUNCTION CHIN EL LIPID PANEL ECP Commercial Cardiac Cath - Left - [facility] PROTHROMBIN TIME WIT H INR LIPID PANEL CBC (INCLUDES DIFF/P LT) BASIC METABOLIC PANE L W/EGFR Cardiac Cath - Left - [facility] PROBNP, N TERMINAL STR - Nuclear Complete Echo Arterial Duplex Bi-L ower EX Venous Doppler Bilat eral LE - Reflux HEMOGLOBIN A1c THYROID PANEL WITH T SH, 3RD GENERATION VITAMIN B12 RETICULOCYTE COUNT IRON AND TOTAL IRON BINDING CAPACITY FOLATE, SERUM FERRITIN CBC (INCLUDES DIFF/P LT) LIPID PANEL BASIC METABOLIC PANE L W/EGFR CT, Coronary Calcium Score HISTORY OF PROCEDURES Procedure Date Procedure Name Provider Procedure Notes S tatus Complex e/m visit add on Murali Miller MD completed Complex e/m visit add on Murali Miller MD completed EKG Murali Miller MD completed EKG Murali Miller MD completed EKG Murali Miller MD completed EKG Murali Miller MD completed EKG Murali Miller MD completed Counseling LDCT Murali Miller MD compl eted Event Monitor Murali Miller MD complet ed EKG Murali Miller MD completed SNOMED-CT: [id number] Smoking Cessation Counseling Murali Miller MD completed SNOMED-CT: [id number] Current Medications Documented Murali Miller MD completed Stress EKG Aubrey Rivera MD complet ed Regadenoson, 4 units Murali Miller MD completed Cardiolite, 2 units Murali Miller MD c ompleted SPECT Images Aubrey Rivera MD compl eted EKG Murali Miller MD completed SNOMED-CT: [id number] Current Medications Documented Murali Miller MD completed CT- Coronary CA score Ceferino Barron MD completed
[2024-07-24 11:02] LABS: Glucose Point of Care 111 mg/dl (65-105)
== END 2024-07-24 10:30 | disposition home or self-care (01) ==
PROVIDERS: PCP Internal Medicine; Visit Provider Internal Medicine
DX: R91.1 Solitary pulmonary nodule (principal); R59.0 Localized enlarged lymph nodes
CPT/HCPCS: 78815; A9552